=== PATIENT | female | born 1940 | race Caucasian/White ===

== ENCOUNTER → 2016-10-04 | Outpatient (CLI) | payer MEDICARE, OTHER ==
--- NOTE | 2016-10-05 07:32 | US ---
EXAMINATION TYPE: US kidneys/renal and bladder DATE OF EXAM: 10/04/2016 4:17 PM COMPARISON: NONE CLINICAL HISTORY: Renal Cyst N28.1. Renal cysts bilateral EXAM MEASUREMENTS: Right Kidney: 10.3 x 5.5 x 4.9 cm Left Kidney: 10.2 x 4.5 x 4.3 cm Right Kidney: No evidence of hydro, 2 cysts at lower pole 1)= 2.4 x 2.4 x 1.7 cm 2)= 1.6 x 1.4 x 1.2 cm cm Left Kidney: No evidence of hydro, 2 cysts at mid 1)= 5.7 x 4.0 x 6.1 cm, 2)= 1.6 x 1.8 x 1.4 cm Bladder: wnl Bilateral Jets seen: Yes There is no evidence for hydronephrosis at this point in time. No nephrolithiasis is seen. Bilateral simple appearing renal cysts as outlined above. The urinary bladder is anechoic. Bilateral ureteral jets are seen. IMPRESSION: Bilateral simple appearing renal cysts as outlined above.
== END | disposition home or self-care (01) ==
LOC: RADUSWWP 15:57
PROVIDERS: ATTEND Family Medicine
DX: N28.1 Cyst of kidney, acquired (principal)
CPT/HCPCS: 76770

== ENCOUNTER → 2016-12-13 | Outpatient (CLI) | payer MEDICARE, OTHER ==
--- NOTE | 2016-12-15 13:21 | MM ---
Reason for exam: screening (asymptomatic). Last mammogram was performed 1 year ago. History: Patient is postmenopausal. Family history of breast cancer in sister at age 68. Physical Findings: A clinical breast exam by your physician is recommended on an annual basis and results should be correlated with mammographic findings. MG 3D Screening Mammo W/Cad Bilateral CC and MLO view(s) were taken. Prior study comparison: December 11, 2015, bilateral MG 3d screening mammo w/cad. December 09, 2014, bilateral MG screening mammo w CAD. The breast tissue is heterogeneously dense. This may lower the sensitivity of mammography. Asymmetries greater in the left breast. No significant changes when compared with prior studies. ASSESSMENT: Benign, BI-RAD 2 RECOMMENDATION: Routine screening mammogram of both breasts in 1 year.
== END | disposition home or self-care (01) ==
LOC: RADMAMWWP 11:04
PROVIDERS: ATTEND Family Medicine
DX: Z12.31 Encounter for screening mammogram for malignant neoplasm of breast (principal)
CPT/HCPCS: 77063; G0202

== ENCOUNTER → 2017-12-15 | Outpatient (CLI) | payer MEDICARE, OTHER ==
--- NOTE | 2017-12-19 10:03 | MM ---
Reason for exam: screening (asymptomatic). Last mammogram was performed 1 year ago. History: Patient is postmenopausal. Family history of breast cancer in sister at age 68. Physical Findings: A clinical breast exam by your physician is recommended on an annual basis and results should be correlated with mammographic findings. MG 3D Screening Mammo W/Cad Bilateral CC and MLO view(s) were taken. Technologist: Jacque Tarango RT (R)(M) Prior study comparison: December 13, 2016, bilateral MG 3d screening mammo w/cad. December 11, 2015, bilateral MG 3d screening mammo w/cad. There are scattered fibroglandular densities. No significant changes when compared with prior studies. ASSESSMENT: Benign, BI-RAD 2 RECOMMENDATION: Routine screening mammogram of both breasts in 1 year.
== END | disposition home or self-care (01) ==
LOC: RADMAMWWP 10:51
PROVIDERS: ATTEND Family Medicine
DX: Z12.31 Encounter for screening mammogram for malignant neoplasm of breast (principal); Z80.3 Family history of malignant neoplasm of breast
CPT/HCPCS: 77063; 77067

== ENCOUNTER → 2018-04-12 | Outpatient (CLI) | payer MEDICARE, OTHER ==
--- NOTE | 2018-04-12 17:09 | MR ---
EXAMINATION TYPE: MR lumbar spine wo con DATE OF EXAM: 04/12/2018 COMPARISON: Prior lumbar MRI dated 08/24/2016 HISTORY: Low back pain TECHNIQUE: Multiplanar, multisequence images of the lumbar spine were acquired. L1-L2: Small posterior central disc bulge causes only slight anterior mass effect on the thecal sac. No significant central stenosis or foraminal encroachment.. L2-L3: Left posterior paracentral extension of endplate disc complex causes anterolateral mass effect on the thecal sac. Facet arthropathy present causing some posterior lateral mass effect on the theca l sac. No significant foraminal encroachment or central stenosis. L3-L4: Facet arthropathy with hypertrophy of the ligamentum flavum causes some posterior lateral mass effect on the thecal sac. Circumferential extension endplate disc complex encroaches on the foramina bilaterally, no significant central stenosis. L4-L5: Posterior broad-based disc bulge causes some anterior mass effect on the thecal sac. Facet art hropathy with hypertrophy of the ligamentum flavum causes posterior lateral mass effect on the thecal sac, there is encroachment on the foramina right greater than left, circumferential extension of end plate disc complex contributes to foraminal encroachment as well as the facet arthropathy. No signifi cant central stenosis. L5-S1: There is facet arthropathy, minimal posterior disc bulge may contact the anterior thecal sac, proximal S1 nerve roots. No significant central canal stenosis. Lumbar segments are intact. No paraspinal masses are identified. Conus medullaris has a normal appe arance. There is stable alignment, multilevel spondylosis is present with endplate discogenic marrow signal change, loss of disc height signal is greatest at L3-4 also present at L2-3, L4-5. Vacuum phen omenon present at intervertebral levels L2-3, L3-4 and L4-5. Large T2 hyperintense focus associated w ith the left kidney likely related to simple cyst but is incompletely evaluated measuring 5.5 cm, sma ller cortical cysts, also incompletely evaluated are present associated with the kidneys, lesion with in the midpole the right kidney shows intermediate signal and may be related to proteinaceous cyst, f ollow-up recommended. IMPRESSION: Stable degenerative disc disease and facet arthropathy, foraminal encroachment. Indeterminate foci ar e associated with the kidneys, consider dedicated imaging, follow-up recommended.
== END | disposition home or self-care (01) ==
LOC: RADMRIMAIN 13:29
PROVIDERS: ATTEND Physical Medicine & Rehabilitation
DX: M51.16 Intervertebral disc disorders with radiculopathy, lumbar region (principal); M46.96 Unspecified inflammatory spondylopathy, lumbar region
CPT/HCPCS: 72148

== ENCOUNTER → 2018-10-16 | Outpatient (CLI) | payer MEDICARE, OTHER ==
--- NOTE | 2018-10-16 13:37 | MR ---
EXAMINATION TYPE: MR cervical spine wo/w con DATE OF EXAM: 10/16/2018 12:22 PM COMPARISON: 03/24/2016 HISTORY: Cervicalgia / Radiculopathy, cervical CONTRAST: The patient was injected with 7.5 mL intravenous Gadavist gadolinium contrast. Multiplanar MultiSpin echo imaging of the cervical spine was performed. Patient motion limits evalua tion. C2-C3: No evidence for degenerative disc disease. No disc bulge/herniation or protrusion. No Canal stenosis. Foramina are patent bilaterally. C3-C4: No evidence for degenerative disc disease. No disc bulge/herniation or protrusion. No Canal stenosis. Foramina are patent bilaterally. C4-C5: Posterior disc bulge. Mild posterocentral disc protrusion. No definite central stenosis. Right foraminal encroachment. C5-C6: No evidence for degenerative disc disease. No disc bulge/herniation or protrusion. No Canal stenosis. Foramina are patent bilaterally. C6-C7: Postoperative changes of anterior cervical discectomy and fusion. Anterior fixation plate is i n place. C7-T1: No evidence for degenerative disc disease. No disc bulge/herniation or protrusion. No Canal stenosis. Foramina are patent bilaterally. No cervical spine fracture. There is normal alignment. Cervical spinal cord is of normal signal. C raniovertebral junction relationships are within normal limits. No pathologic enhancement. IMPRESSION: 1. Limited study by patient motion. Postoperative changes of ACDF at C6-7. Disc desiccation and disc protrusion small in size at C4-5.
== END | disposition home or self-care (01) ==
LOC: RADMRIMAIN 11:36
PROVIDERS: ATTEND Orthopaedic Surgery Orthopaedic Surgery of the Spine
DX: M50.121 Cervical disc disorder at C4-C5 level with radiculopathy (principal); F17.218 Nicotine dependence, cigarettes, with other nicotine-induced disorders; E66.9 Obesity, unspecified; Z98.1 Arthrodesis status
CPT/HCPCS: 72156; A9585

== ENCOUNTER → 2018-11-27 | Outpatient (CLI) | payer MEDICARE, OTHER ==
--- NOTE | 2018-11-27 15:57 | US ---
EXAMINATION TYPE: US extremity nonvasc mass LT DATE OF EXAM: 11/27/2018 COMPARISON: NONE CLINICAL HISTORY: 78-year-old female R22.42 Localized swelling, mass and lump llext. Lump lateral lef t lower leg near ankle for 1 month. No pain, no discoloration Technique: Targeted ultrasound examination along the lateral aspect of the distal left leg/ankle at t he site of palpable abnormality. FINDINGS: Translation Director notes: Within area of concern, left lateral lower leg near ankle, there is a circumscribe d hypoechoic area = 1.5 x 0.4 x 1.6cm this seems to be located within the subcutaneous tissues overly ing musculature close to the distal fibula. When transducer pressure, there is some mass effect onto the underlying musculature. No associated vascularity. What is suspected to be one of the peroneal te ndons is located nearby just posteriorly. IMPRESSION: Well-defined 1.6 x 1.5 x 0.4 cm hypoechoic nodule located within the subcutaneous adipose layer overl andrade musculature adjacent to the distal fibula. Exact etiology is unclear. A small mesenchymal tumor, granuloma, 4 nodular synovitis are some differential considerations. This area can be followed clini susan. If symptomatic, excision could be considered. If further imaging assessment is desired, small [id number] MRI can be considered.
== END | disposition home or self-care (01) ==
LOC: RADUSWWP 14:07
PROVIDERS: ATTEND Family Medicine
DX: R22.42 Localized swelling, mass and lump, left lower limb (principal); C40.22 Malignant neoplasm of long bones of left lower limb; L92.9 Granulomatous disorder of the skin and subcutaneous tissue, unspecified; M65.9 Synovitis and tenosynovitis, unspecified

== ENCOUNTER → 2018-12-21 | Outpatient (CLI) | payer MEDICARE, OTHER ==
--- NOTE | 2018-12-22 14:49 | MR ---
EXAMINATION TYPE: MR ankle LT wo/w con DATE OF EXAM: 12/21/2018 COMPARISON: Prior targeted ultrasound dated 11/27/2018 HISTORY: Left ankle mass x 1-2 months Technique: Standard multiplanar, multisequence MRI departmental protocol utilizing 7.5 mL intravenous Gadavist g adolinium contrast. FINDINGS: T1 weighted imaging demonstrates small dorsal osteophytes of the talonavicular joint and very small p lantar heel spur as well as extremely small Achilles heel spur. No joint effusion is seen of bone mar row edema. Sinus tarsus is unremarkable. Plantar fascial and Achilles tendon are within normal limits of signal and morphology on both fluid sensitive and T1 weighted sequences. There is an encapsulated elongated 1.6 x 0.3 cm within the subcutaneous tissues deep to the palpable BB marker with mild overlying cutaneous edema. This appears to follow intensity of fat on all sequenc es and does not demonstrate any internal enhancement. Nonspecific edema is seen throughout the remain george of the anterior hindfoot and ankle. This abuts the Proteus brevis and longus without any invasion or muscular edema. Ankle mortise congruity alignment are maintained. Degenerative cystic change of the fibula is present just above the insertion of the posterior talofibular ligament. The deltoid ligament, spring ligamen t, anterior talofibular ligament, and posterior talofibular ligament appear intact and unremarkable. There is a split tear of the peroneus brevis just distal to the ankle joint that is long segment exte nding approximately 2.5 to 3 cm in length. The extensor and flexor tendons are intact and unremarkabl e. Lisfranc ligament is suboptimally visualized given [id number] but does appear to be intact. Bon e marrow signal is within normal limits. IMPRESSION: Lipomatous lesion of the left lateral ankle superficial subcutaneous tissues just deep to the skin rodriguez rface does not exhibit abnormal enhancement or suspicious features, overall features are benign. Asym ptomatic or interval growth excision could be performed.
== END | disposition home or self-care (01) ==
LOC: RADMRIMAIN 11:47
PROVIDERS: ATTEND Orthopaedic Surgery
DX: R22.42 Localized swelling, mass and lump, left lower limb (principal)
CPT/HCPCS: 73723; A9585

== ENCOUNTER → 2019-01-01 | Outpatient (CLI) | payer MEDICARE, OTHER ==
--- NOTE | 2019-01-01 14:40 | US ---
EXAMINATION TYPE: US renals and bladder DATE OF EXAM: 01/01/2019 COMPARISON: NONE CLINICAL HISTORY: N18.3 Chronic Kidney Disease. h/o renal cysts EXAM MEASUREMENTS: Right Kidney: 10.1 x 4.9 x 5.3 cm Left Kidney: 9.5 x 3.5 x 4.5 cm Right Kidney: 2.4 x 2.2 x 2.1cm lateral pole cyst seen Left Kidney: 6.9 x 6.8 x 4.4cm anterior mid pole cyst seen Bladder: wnl Bilateral Jets seen: yes There is no evidence for hydronephrosis at this point in time. No nephrolithiasis is seen. No solid masses are identified. The urinary bladder is anechoic. Bilateral ureteral jets are seen. IMPRESSION: Simple renal cysts noted.
== END | disposition home or self-care (01) ==
LOC: RADUSWWP 12:07
PROVIDERS: ATTEND Internal Medicine
DX: N28.1 Cyst of kidney, acquired (principal); N18.3 Chronic kidney disease, stage 3 (moderate)
CPT/HCPCS: 76770

== ENCOUNTER 2019-04-05 06:34 | Day surgery (SDC) | payer MEDICARE, OTHER ==
[2019-04-03 11:23] VITALS: BMI 32.7
[~2019-04-05 06:34] MED LIST: DEXAMETHASONE SOD PHOSPHATE 10 MG/ML 1 ML VIAL IV ONE; LACTATED RINGERS 1,000 ML IV SCH; LIDOCAINE 1% 20 ML VIAL (10MG/ML) FOR IV START INTRADERMA PRN; ONDANSETRON 4 MG/2 ML VIAL IVP ONE; fentaNYL (PF) 50 MCG/ML 2 ML AMP IV PRN
[2019-04-05 07:08] VITALS: RESP 18; TEMP 98.6
[2019-04-05 07:09] LABS: Glucose,Whole Blood 139 mg/dL (75-99)
[2019-04-05] MEDS ORDERED: KETAMINE 10 MG/ML 20 ML VIAL ONE (07:48)
[2019-04-05] MEDS ORDERED: PROPOFOL 10 MG/ML 20 ML VIAL IV ONE (07:48)
[2019-04-05] MEDS ORDERED: fentaNYL (PF) 50 MCG/ML 2 ML AMP ONE (07:48)
[2019-04-05] MEDS ORDERED: MIDAZOLAM 2 MG/2 ML VIAL ONE (07:48)
[2019-04-05] MEDS ORDERED: BUPIVACAINE (PF) 0.5% 30 ML VIAL SQ ONE ×2 (08:07)
--- NOTE | 2019-04-05 08:39 | P.OP ---
Date of Procedure: 04/05/19 Preoperative Diagnosis: 1. Painful bony exostosis, distal phalanx left fifth toe Postoperative Diagnosis: Same Procedure(s) Performed: Partial distal phalangectomy, left fifth toe Anesthesia: MAC Surgeon: Franco Qureshi Laminating Machine Operator Helper #1: Charisse Blue Estimated Blood Loss (ml): 2 IV fluids (ml): 500 Pathology: none sent Condition: stable Disposition: PACU Indications for Procedure: The patient is a very pleasant 78-year-old female who presented to my office with a painful bump off the distal aspect of her fifth toe. Her x-rays showed a bony exostosis. We discussed nonsurgical versus surgical treatment. The patient was adamant that she had failed a long course of nonsurgical treatment and requested removal of the painful bump. I agreed and had a long discussion with him the potential risks and competitions of surgery including but not limited to risks from anesthesia, superficial infection, damage to local blood vessels or nerves, continued or worsened pain, recurrence, sensitive scar, generalized dissatisfaction with surgery, DVT, PE, other medical problems, and possibly need for amputation of the toe. The patient voiced understanding of these potential risks and also nausea other less common complications are possible. She provided her verbal and written consent to go forward with surgery. Description of Procedure: The patient was identified in preop holding and the correct left foot fifth toe was marked my initials. I reviewed the consent form with the patient also her questions were answered. The patient was then brought back to the operating room by anesthesia. She was given a sedation and preoperative antibiotics. The left leg was prepped and draped in standard sterile fashion. Prior to starting surgery timeout was performed identifying the correct patient operative extremity, and procedure. The patient's leg was then elevated exsanguinated with an Esmarch bandage and the tourniquet was inflated to 250 mmHg. A digital block was performed of the left fifth toe using half percent Marcaine without epinephrine. I began by marking out a mid axial incision over the lateral aspect of the fifth toe. Skin incision was made with a scalpel and dissection was carried down bluntly through subcutaneous tissues. There was a large bony prominence over the distal phalanx which was contoured with a ronguer until there was no longer a prominence. Once the bony exostosis had been debulked the tip of the tonal longer had a painful prominence to palpation. The wound was thoroughly irrigated and gently closed using 3-0 nylon horizontal mattress sutures. The tourniquet was let down. The tip of the toe pinked up. A sterile dressing was applied. The patient was transferred from the OR table and brought to recovery entire procedure well
[2019-04-05 08:57] VITALS: BP 145/71; PULSE 68
== END 2019-04-05 09:26 | disposition home or self-care (01) ==
LOC: OR 06:34
PROVIDERS: ATTEND Orthopaedic Surgery
DX: D16.32 Benign neoplasm of short bones of left lower limb (principal); E11.9 Type 2 diabetes mellitus without complications; I10 Essential (primary) hypertension; E78.5 Hyperlipidemia, unspecified; F41.9 Anxiety disorder, unspecified; G47.9 Sleep disorder, unspecified; M19.072 Primary osteoarthritis, left ankle and foot; N28.9 Disorder of kidney and ureter, unspecified; K21.9 Gastro-esophageal reflux disease without esophagitis; Z72.0 Tobacco use; Z88.7 Allergy status to serum and vaccine; Z79.84 Long term (current) use of oral hypoglycemic drugs; Z79.899 Other long term (current) drug therapy; Z79.891 Long term (current) use of opiate analgesic; Z97.3 Presence of spectacles and contact lenses; Z98.1 Arthrodesis status; Z98.890 Other specified postprocedural states; Z90.49 Acquired absence of other specified parts of digestive tract; Z97.2 Presence of dental prosthetic device (complete) (partial); Z83.3 Family history of diabetes mellitus; Z82.49 Family history of ischemic heart disease and other diseases of the circulatory system
CPT/HCPCS: 28124; 84132; J2250; J1100; J0690; J2405; J3010; J2704

== ENCOUNTER → 2020-01-01 | Outpatient (CLI) | payer MEDICARE, OTHER ==
--- NOTE | 2020-01-01 15:50 | BD ---
EXAMINATION TYPE: Axial Bone Density DATE OF EXAM: 01/01/2020 COMPARISON: NONE CLINICAL HISTORY: 79-year-old female postmenopausal screening Height: 4 FT 11 1/2 IN Weight: 169 FRAX RISK QUESTIONS: Alcohol (3 or more units per day): NO Family History (Parent hip fracture): NO Glucocorticoids (More than 3mos): NO (Ex: prednisone, prednisolone, methylprednisolone, dexamethasone, and hydrocortisone). History of Fracture in Adulthood: NO Secondary Osteoporosis: 1. Type 1 Diabetes: NO 2. Hyperthyroidism: NO 3. Menopause before 45: UNSURE 4. Malnutrition: NO 5. Chronic liver disease: NO Rheumatoid Arthritis: NO Current Tobacco Use: YES RISK FACTORS HISTORY OF: Family History of Osteoporosis: YES Active: SOMEWHAT Postmenopausal woman: STATES IT WAS EARLY UNSURE Poor Health: FAIR MEDICATIONS: Additional Medications: EZETIMIBE, SIMVASTATIN, JANUVIA, GLIPIZIDE, OLMESARTAN, MEDOXOML,LAVAZA, HYDR OCODONE, ACETAMINO,RANITIDINE, ACCU CHECK, OCUVITE, LANCER Additional History: EXAM MEASUREMENTS: Bone mineral densitometry was performed using the Neurodyn System. Bone mineral density as measured about the Lumbar spine is: ----- L1-L4(G/cm2): 1.199 T Score Values are as follows: ----- L2: -1.0 ----- L3: 1.5 ----- L4: 0.0 ----- L1-L4: 0.2 Bone mineral density has: INCREASED 1.8 % since study of: 2016 Bone mineral density about the R hip (g/cm2): 0.822 Bone mineral density about the L hip (g/cm2): 0.871 T Score values are as follows: -----R Neck: -1.6 -----L Neck: -1.2 -----R Total: -0.7 -----L Total: -0.4 Bone mineral density has: DECREASED -7.6 % since study of: 2016 IMPRESSION: Osteopenia (T Score between -2.5 and -1). There is slightly increased risk of fracture and the patient may be considered for treatment. Re-Screen 2-5 years. He NOTE: T-SCORE=SD OF THE YOUNG ADULT MEAN.
--- NOTE | 2020-01-02 08:44 | MM ---
Reason for exam: screening (asymptomatic). Last mammogram was performed 1 year and 1 month ago. History: Patient is postmenopausal. Family history of breast cancer in sister at age 68. Physical Findings: A clinical breast exam by your physician is recommended on an annual basis and results should be correlated with mammographic findings. MG 3D Screening Mammo W/Cad Bilateral CC and MLO view(s) were taken. Prior study comparison: December 12, 2018, bilateral MG 3d screening mammo w/cad. December 15, 2017, bilateral MG 3d screening mammo w/cad. The breast tissue is heterogeneously dense. This may lower the sensitivity of mammography. Finding: There are typically benign dystrophic, round, linear calcifications in both breasts. There is a chronic nodularity in the right breast. There is no discrete abnormality. ASSESSMENT: Benign, BI-RAD 2 RECOMMENDATION: Routine screening mammogram of both breasts in 1 year.
== END | disposition home or self-care (01) ==
LOC: RADMAMWWP 09:12
PROVIDERS: ATTEND Family Medicine
DX: M81.8 Other osteoporosis without current pathological fracture (principal); Z12.31 Encounter for screening mammogram for malignant neoplasm of breast
CPT/HCPCS: 77063; 77067; 77080

== ENCOUNTER 2020-06-22 11:49 | Emergency (ER) | payer MEDICARE, OTHER ==
[2020-06-22 11:56] VITALS: RESP 18; TEMP 98.3
[2020-06-22] MEDS ORDERED: HYDROcodone/APAP 5-325MG 1 EACH TAB PO STA (12:01)
--- NOTE | 2020-06-22 12:08 | ED ---
Extremity Problem HPI - General Chief complaint: Extremity Problem,Nontraumatic Stated complaint: knee pain Time Seen by Provider: 06/22/20 11:53 Source: patient, EMS Mode of arrival: EMS Limitations: physical limitation - History of Present Illness Initial comments: Patient is an 80-year-old female presenting to the emergency department via EMS with complaints of left knee pain. Patient states 2 weeks ago she was having an echo of her heart and laying on her left side and noticed a little bit of left knee pain at that time. She states she's been doing okay since but then today she was standing and went to walk to another room when she felt a pop in her left knee. Patient states she was unable to ambulate after that so she called EMS. She states the pain is mostly in the anterior portion of her left knee. She denies any fever or chills. Patient states she normally takes [place] for pain but has not taken one today. She denies any prior surgeries of her left knee. She denies any falls or trauma. She has no further complaints at this time. - Related Data Home Medications Medication Instructions Recorded Confirmed Ezetimibe/Simvastatin [Vytorin 1 each PO DAILY 02/20/14 04/05/19 10-80 mg Tablet] glipiZIDE [Glucotrol] 10 mg PO AC-BRKFST 02/20/14 04/05/19 sitaGLIPtin [Januvia] 100 mg PO QAM 02/20/14 04/05/19 C,E,Zinc,Copper 11/Gkwwc6w/Lut 1 each PO DAILY 04/03/19 04/05/19 [Ocuvite Adult 50 Plus Softgel] Cholecalciferol [Vitamin D3 (25 2,000 unit PO DAILY 04/03/19 04/05/19 Mcg = 1000 Iu)] HYDROcodone/APAP 7.5-325MG [[place] 1 tab PO TID PRN 04/03/19 04/05/19 7.5-325] Losartan Potassium 50 mg PO QAM 04/03/19 04/05/19 [place]-3 Acid Ethyl Esters [Lovaza] 4 gm PO DAILY 04/03/19 04/05/19 Pioglitazone [Actos] 15 mg PO DAILY 04/03/19 04/05/19 Allergies Allergy/AdvReac Type Severity Reaction Status Date / Time tetanus immune globulin Allergy Swelling Verified 06/22/20 11:55 Review of Systems ROS Statement: Those systems with pertinent positive or pertinent negative responses have been documented in the HPI. ROS Other: All systems not noted in ROS Statement are negative. Past Medical History Past Medical History: Diabetes Mellitus, Eye Disorder, GERD/Reflux, Hyperlipidemia, Hypertension, Osteoarthritis (OA), Renal Disease Additional Past Medical History / Comment(s): Limited mobility right shoulder/arm. "Hx Macular degeneration bilateral eyes, resolved." Heart murmur. "Poor kidney function due to Diabetes." History of Any Multi-Drug Resistant Organisms: None Reported Past Surgical History: Cholecystectomy, Orthopedic Surgery, Tonsillectomy Additional Past Surgical History / Comment(s): Neck fusion, carpel tunnel surgery, left ring finger trigger finger surgery, right shoulder surgery, heel spur surgery. Epidural injections. Past Anesthesia/Blood Transfusion Reactions: No Reported Reaction Past Psychological History: No Psychological Hx Reported Past Alcohol Use History: None Reported Past Drug Use History: None Reported - Past Family History Sister(s) Family Medical History: Cancer Additional Family Medical History / Comment(s): Breast cancer. General Exam - General Exam Comments Initial Comments: GENERAL: Patient is well-developed and well-nourished. Patient is nontoxic and in no acute distress. HEAD: Atraumatic, normocephalic. EYES: Pupils equal round and reactive to light, extraocular movements intact, sclera anicteric, conjunctiva are normal. Eyelids were unremarkable. ENT: TMs normal, nares patent, oropharynx clear without exudates. Moist mucous membranes. NECK: Normal range of motion, supple without lymphadenopathy or JVD. LUNGS: Unlabored respirations. Breath sounds clear to auscultation bilaterally and equal. No wheezes rales or rhonchi. HEART: Regular rate and rhythm without murmurs, rubs or gallops. ABDOMEN: Soft, nontender, normoactive bowel sounds. No guarding, no rebound. No masses appreciated. : Deferred MUSCULOSKELETAL: Patient has pain to palpation of the anterior left knee, medial and lateral aspect as well. She has decreased active flexion secondary to pain. She does have some mild to moderate swelling present. No erythema or signs of infection. Neurovascular intact. No clubbing or cyanosis. NEUROLOGICAL: Patient is alert and oriented x 3. Motor and sensory are also intact. Normal sp eech, normal gait. PSYCH: Normal mood, normal affect. SKIN: Warm, Dry, normal turgor, no rashes or lesions noted. Limitations: physical limitation Course Vital Signs 06/22/20 06/22/20 06/22/20 11:51 12:34 13:03 Temperature 98.3 F 98.3 F Pulse Rate 78 75 75 Respiratory 18 18 18 Rate Blood Pressure 171/62 158/70 158/70 O2 Sat by Pulse 98 98 98 Oximetry Medical Decision Making - Medical Decision Making Patient is an 80-year-old female here for left knee pain. No trauma or falls. She's had no prior surgeries. No obvious signs of infection. X-rays reveal no acute fractures/dislocations. I discussed with patient this could be an irritation of her arthritis or possibly contusion, internal derangement is also possibility. Patient has seen Dr. iRder and zeke in the past. I discussed with her to call them first in the morning to follow-up. I will give her prescription for crutches. She is stable for discharge. She is in agreement this plan of care. Disposition Clinical Impression: Left anterior knee pain Disposition: HOME SELF-CARE Condition: Stable Instructions (If sedation given, give patient instructions): Knee Pain (ED) Additional Instructions: Please return to the Emergency Department if symptoms worsen or any other concerns. Continue with ice, elevation. Use crutches as needed for additional support. Follow up with orthopedics as discussed. Is patient prescribed a controlled substance at d/c from ED?: No Referrals: Sedrick Diego MD [Primary Care Provider] - 1-2 days Collins Rider DO [Doctor of Osteopathic Medicine] - 1-2 days
--- NOTE | 2020-06-22 12:33 | XR ---
EXAMINATION TYPE: XR knee complete LT DATE OF EXAM: 06/22/2020 COMPARISON: NONE HISTORY: Pain TECHNIQUE: Three views are submitted. FINDINGS: Spurring along the patella and vascular calcifications noted. Narrowing of medial compartment of the knee joint. No acute fracture or dislocation. IMPRESSION: 1. No acute fracture.
[2020-06-22 12:35] VITALS: BP 158/70; PULSE 75
== END 2020-06-22 13:04 | disposition home or self-care (01) ==
LOC: EC 11:49
DX: M25.562 Pain in left knee (principal); M79.89 Other specified soft tissue disorders; E11.9 Type 2 diabetes mellitus without complications; K21.9 Gastro-esophageal reflux disease without esophagitis; E78.5 Hyperlipidemia, unspecified; I10 Essential (primary) hypertension; M19.90 Unspecified osteoarthritis, unspecified site; Z79.84 Long term (current) use of oral hypoglycemic drugs; Z79.899 Other long term (current) drug therapy; Z88.7 Allergy status to serum and vaccine; Z98.1 Arthrodesis status; Z90.49 Acquired absence of other specified parts of digestive tract
CPT/HCPCS: 99283

== ENCOUNTER → 2021-01-15 | Outpatient (CLI) | payer MEDICARE, OTHER ==
--- NOTE | 2021-01-19 14:30 | MM ---
Reason for exam: screening (asymptomatic). Last mammogram was performed 1 year ago. History: Patient is postmenopausal. Family history of breast cancer in sister at age 68. Physical Findings: A clinical breast exam by your physician is recommended on an annual basis and results should be correlated with mammographic findings. MG 3D Screening Mammo W/Cad Bilateral CC and MLO view(s) were taken. Prior study comparison: January 01, 2020, bilateral MG 3d screening mammo w/cad. December 12, 2018, bilateral MG 3d screening mammo w/cad. The breast tissue is heterogeneously dense. This may lower the sensitivity of mammography. Asymmetry greater in the left breast. No significant changes when compared with prior studies. ASSESSMENT: Benign, BI-RAD 2 RECOMMENDATION: Routine screening mammogram of both breasts in 1 year.
== END | disposition home or self-care (01) ==
LOC: RADMAMWWP 10:55
PROVIDERS: ATTEND Family Medicine
DX: Z12.31 Encounter for screening mammogram for malignant neoplasm of breast (principal); Z78.0 Asymptomatic menopausal state; Z80.3 Family history of malignant neoplasm of breast
CPT/HCPCS: 77063; 77067

== ENCOUNTER → 2024-03-01 | Outpatient (CLI) | payer MEDICARE, OTHER ==
--- NOTE | 2024-03-06 08:21 | MM ---
Reason for Exam: Screening (asymptomatic). Last mammogram was performed 1 year(s) and 1 month(s) ago. Patient History: Menarche at age 11. First Full-Term at age 18. Postmenopausal. Sister had breast cancer, age 68. Risk Values: Kathleen 5 year model risk: 3.0%. NCI Lifetime model risk: 3.8%. Prior Study Comparison: 12/12/2018 Bilateral Screening Mammogram, [facility]. 01/01/2020 Bilateral Screening Mammogram, [facility]. 01/15/2021 Bilateral Screening Mammogram, [facility]. 01/24/2023 Bilateral Screening Mammogram, [facility]. Tissue Density: The breasts are heterogeneously dense, which may obscure small masses. Findings: Analyzed By CAD. Benign-appearing calcifications. No suspicious grouped calcifications. Area of asymmetric density in the outer margin left breast. Recommend spot compression view. Overall Assessment: Incomplete: need additional imaging evaluation, BI-RAD 0 Management: Diagnostic Mammogram of the left breast. . Patient should continue monthly self-breast exams. A clinical breast exam by your physician is recommended on an annual basis. This exam should not preclude additional follow-up of suspicious palpable abnormalities. Note on Kathleen scores and lifetime risk: 1. A Kathleen score greater than 3% is considered moderate risk. If this is the case, consider specialist referral to assess eligibility for a risk reducing agent. 2. If overall lifetime risk for the development of breast cancer is 20% or higher, the patient may qualify for future screening with alternating mammogram and breast MRI. [facility], , 03/06/2024 8:18 AM. Electronically signed and approved by: Jos Vilchis M.D. Radiologis
--- NOTE | 2024-03-12 21:28 | BD ---
EXAMINATION TYPE: Axial Bone Density DATE OF EXAM: 03/01/2024 CLINICAL HISTORY: 83 years old Female. ICD-10 CODE: M89.9 DISORDER OF BONE Height: 60 Weight: 159.7 FRAX RISK QUESTIONS: Alcohol (3 or more units per day): no Family History (Parent hip fracture): no Glucocorticoids (More than 3mos): no (Ex: prednisone, prednisolone, methylprednisolone, dexamethasone, and hydrocortisone). History of Fracture in Adulthood: no Secondary Osteoporosis: 1. Type 1 Diabetes: no 2. Hyperthyroidism: no 3. Menopause before 45: no 4. Malnutrition: no 5. Chronic liver disease: no Rheumatoid Arthritis: no Current Tobacco Use: yes RISK FACTORS HISTORY OF: Hip Fracture (Right/Left): no Spine Fracture: no History of Wrist Fracture: no Surgery to Spine/Hip(right/left)/Wrist (right/left): no MEDICATIONS: Thyroid Medications: no Osteoporosis Medications: no EXAM MEASUREMENTS: Bone mineral densitometry was performed using the [employer] System. Bone mineral density as measured about the Lumbar spine is: ----- L1-L4(G/cm2): 1.213 T Score Values are as follows: ----- L1: 0.8 ----- L2: -0.7 ----- L3: 0.8 ----- L4: 0.1 ----- L1-L4: 0.3 Z Score Values are as follows: ----- L1: 2.3 ----- L2: 0.8 ----- L3: 2.3 ----- L4: 1.6 ----- L1-L4: 1.8 Bone mineral density has: INCREASED 1.2 % since study of: 01/01/2020 Bone mineral density about the R hip (g/cm2): 0.829 Bone mineral density about the L hip (g/cm2): 0.898 T Score values are as follows: -----R Neck: -2.0 -----L Neck: -1.7 -----R Total: -1.4 -----L Total: -0.9 Z Score values are as follows: -----R Neck: 0.1 -----L Neck: 0.4 -----R Total: 0.5 -----L Total: 1.1 Bone mineral density has: decreased -7.7 % since study of: 01/01/2020 FRAX%s: The graph provided illustrates a 15.9 % chance for a major osteoporotic fx and a 7.1% chance for the hips probability for fx in 10 years time. IMPRESSION: Osteopenia (T Score between -2.5 and -1). There is slightly increased risk of fracture and the patient may be considered for treatment. Re-Screen 2-5 years. NOTE: T-SCORE=SD OF THE YOUNG ADULT MEAN. [facility], , 03/12/2024 9:26 PM
== END | disposition home or self-care (01) ==
LOC: RADBDWWP 09:58
PROVIDERS: ATTEND Family Medicine
DX: Z12.31 Encounter for screening mammogram for malignant neoplasm of breast (principal); Z78.0 Asymptomatic menopausal state; Z80.3 Family history of malignant neoplasm of breast; R92.333 Mammographic heterogeneous density, bilateral breasts; M81.8 Other osteoporosis without current pathological fracture
CPT/HCPCS: 77063; 77067; 77080

== ENCOUNTER → 2024-03-07 | Outpatient (CLI) | payer MEDICARE, OTHER ==
--- NOTE | 2024-03-07 11:16 | MM ---
Reason for Exam: Additional evaluation requested from abnormal screening. Last screening mammogram was performed less than 1 month ago. Patient History: Menarche at age 11. First Full-Term at age 18. Postmenopausal. Sister had breast cancer, age 68. Risk Values: Kathleen 5 year model risk: 3.0%. NCI Lifetime model risk: 3.8%. Prior Study Comparison: 01/15/2021 Bilateral Screening Mammogram, [facility]. 01/24/2023 Bilateral Screening Mammogram, [facility]. 03/01/2024 Bilateral MG 3D screening mammo w/cad, [facility]. Tissue Density: Left: The breasts are heterogeneously dense, which may obscure small masses. Findings: Analyzed By CAD. Under compression on the craniocaudal view appears to be persistence of an oval density with a transverse dimension of 0.6 cm located 4 cm from the nipple approximately 3:00 anterior position. Additional workup with ultrasound is recommended. Overall Assessment: Incomplete: need additional imaging evaluation, BI-RAD 0 Management: Diagnostic Breast Ultrasound of the left breast. A negative mammogram report should not preclude additional follow up of suspicious palpable abnormalities. Patient should continue monthly self breast exam. A clinical breast exam by your physician is recommended on an annual basis and results should be correlated with mammographic findings. Note on Kathleen scores and lifetime risk: 1. A Kathleen score greater than 3% is considered moderate risk. If this is the case, consider specialist referral to assess eligibility for a risk reducing agent. 2. If overall lifetime risk for the development of breast cancer is 20% or higher, the patient may qualify for future screening with alternating mammogram and breast MRI. [facility], , 03/07/2024 11:13 AM. Electronically signed and approved by: Julio Dc D.O. Radiologis
--- NOTE | 2024-03-07 13:14 | USB ---
Reason for Exam: Additional evaluation requested from abnormal screening. Patient History: Menarche at age 11. First Full-Term at age 18. Postmenopausal. Sister had breast cancer, age 68. Risk Values: Kathleen 5 year model risk: 3.0%. NCI Lifetime model risk: 3.8%. Technique: Method: Targeted. Prior Study Comparison: 01/15/2021 Bilateral Screening Mammogram, [facility]. 01/24/2023 Bilateral Screening Mammogram, [facility]. 03/01/2024 Bilateral MG 3D screening mammo w/cad, [facility]. Findings: The lateral section of the breast of the left breast, the axilla of the left breast and the retroareolar of the left breast were scanned. There is a few small simple appearing cysts in the left breast including 3:00 position measuring 0.4 x 0.4 x 0.4 cm 6 cm the nipple. This may correlate with the mammographic finding. Short-term follow-up mammography is recommended to confirm stability. Couple of other additional hypoechoic areas too small to classify are evident.. Overall Assessment: Benign, BI-RAD 2 Management: Diagnostic Mammogram of the left breast in 6 months. A clinical breast exam by your physician is recommended on an annual basis and results should be correlated with mammographic findings. This exam should not preclude additional follow-up of suspicious palpable abnormalities. Results were given to the patient verbally at the time of exam. [facility], , 03/07/2024 11:47 AM. Electronically signed and approved by: Julio Dc D.O. Radiologis
== END | disposition home or self-care (01) ==
LOC: RADMAMWWP 10:42
PROVIDERS: ATTEND Family Medicine
DX: R92.8 Other abnormal and inconclusive findings on diagnostic imaging of breast
CPT/HCPCS: 77061; 77065

== ENCOUNTER 2024-08-28 02:59 | Inpatient (IN) | payer MEDICARE, OTHER ==
[2024-08-28] MEDS: methylPREDNISolone SOD SUCCI 125 MG/2 ML VIAL IV STA (03:33)
[2024-08-28] MEDS: ALBUTEROL NEBULIZED 2.5 MG/3 ML INHALATION STA (03:37)
[2024-08-28] MEDS: IPRATROPIUM 0.5 MG/2.5 ML NEBU INHALATION STA (03:37)
[2024-08-28] MEDS: ONDANSETRON 4 MG/2 ML VIAL IVP STA (03:37)
[2024-08-28] MEDS: ACETAMINOPHEN IV (For NPO) 1,000 MG in EMPTY BAG 1 BAG IVPB STA (03:40)
--- NOTE | 2024-08-28 03:44 | ED ---
General Adult HPI - General Chief complaint: Shortness of Breath Stated complaint: SOB Time Seen by Provider: 08/28/24 03:00 Source: patient, EMS Mode of arrival: EMS Limitations: no limitations - History of Present Illness Initial comments: Patient is 84-year-old female past medical history of hypertension, current smoker presenting today for shortness of breath. Started in the afternoon yesterday and is gradually worsen throughout the day. Endorses a cough nonproductive of hemoptysis or sputum. She denies chest pain. History is limited due to the patient's tachypnea and shortness of breath. - Related Data Home Medications Medication Instructions Recorded Confirmed Ezetimibe/Simvastatin [Vytorin 1 tab PO DAILY 02/20/14 08/28/24 10-80 mg Tablet] sitaGLIPtin [Januvia] 100 mg PO DAILY 02/20/14 08/28/24 HYDROcodone/APAP 7.5-325MG [Carney 1 tab PO TID PRN 04/03/19 08/28/24 7.5-325] Cetirizine HCl [Zyrtec] 10 mg PO DAILY 08/28/24 08/28/24 Cholecalciferol [Vitamin D3 (25 50 mcg PO DAILY 08/28/24 08/28/24 Mcg = 1000 Iu)] Olmesartan Medoxomil [Benicar] 30 mg PO DAILY 08/28/24 08/28/24 Pioglitazone [Actos] 30 mg PO DAILY 08/28/24 08/28/24 Vit C/E/Zn/Coppr/Lutein/Zeaxan 1 cap PO BID 08/28/24 08/28/24 [Preservision Areds 2 Softgel] amLODIPine [Norvasc] 2.5 mg PO BID 08/28/24 08/28/24 glipiZIDE XL [Glucotrol Xl] 10 mg PO DAILY 08/28/24 08/28/24 Allergies Allergy/AdvReac Type Severity Reaction Status Date / Time tetanus immune globulin Allergy Swelling Verified 08/28/24 08:29 cefdinir [From Omnicef] AdvReac Nausea Verified 08/28/24 08:29 codeine AdvReac Nausea Verified 08/28/24 08:29 metformin AdvReac STOMACH Verified 08/28/24 08:29 ISSUES Review of Systems ROS Statement: Those systems with pertinent positive or pertinent negative responses have been documented in the HPI. ROS Other: All systems not noted in ROS Statement are negative. Limitations: ROS unobtainable due to patients medical condition Past Medical History Past Medical History: Diabetes Mellitus, Eye Disorder, GERD/Reflux, Hyperlipidemia, Hypertension, Osteoarthritis (OA), Renal Disease Additional Past Medical History / Comment(s): Limited mobility right shoulder/arm. "Hx Macular degeneration bilateral eyes, resolved." Heart murmur. "Poor kidney function due to Diabetes." History of Any Multi-Drug Resistant Organisms: None Reported Past Surgical History: Cholecystectomy, Orthopedic Surgery, Tonsillectomy Additional Past Surgical History / Comment(s): Neck fusion, carpel tunnel surgery, left ring finger trigger finger surgery, right shoulder surgery, heel spur surgery. Epidural injections. Past Anesthesia/Blood Transfusion Reactions: No Reported Reaction Past Psychological History: No Psychological Hx Reported Past Alcohol Use History: None Reported Past Drug Use History: None Reported - Past Family History Sister(s) Family Medical History: Cancer Additional Family Medical History / Comment(s): Breast cancer. General Exam - General Exam Comments Initial Comments: PE: CONSTITUTIONAL: Moderate distress, tachypneic, ill appearing, nontoxic SKIN: Warm, dry, no jaundice, hives or petechiae EYES: Pupils are equally round, extraocular movements intact without nystagmus, clear conjunctiva, non-icteric sclera HENT: Normocephalic, atraumatic, moist mucus membranes, oropharynx clear without exudates NECK: , Full range of motion, normal appearance PULMONARY: Wheezes in bilateral lower lung sigala, decreased excursion, no rales, accessory mucsle use or stridor CARDIOVASCULAR: Regular rate, rhythm, normal S1 and S2. No appreciated murmurs, rubs or gallops. Strong radial pulses with intact distal perfusion. No lower extremity edema GASTROINTESTINAL: Soft, active bowel sounds throughout, non-tender, non- distended, no palpable masses, no rebound or guarding. No hepatosplenomegaly GENITOURINARY: MUSCULOSKELETAL: Extremities have no gross deformity, no edema, redness, or swelling. No calf swelling NEUROLOGIC:_a/o x 3, GCS 15, normal mentation and speech. Moves all extremities x 4 without motor or sensory deficit PSYCHIATRIC:_normal mood and affect, thought process is clear and linear Limitations: no limitations Course Vital Signs 08/28/24 08/28/2425 03:05 03:38 03:56 Temperature 99.9 F H Pulse Rate 94 85 98 Respiratory 22 Rate Blood Pressure 206/78 O2 Sat by Pulse 97 Oximetry 08/28/24 08/28/24 08/28/24 03:57 04:00 04:17 Temperature Pulse Rate 98 93 100 Respiratory 22 Rate Blood Pressure 167/53 O2 Sat by Pulse 100 Oximetry 08/28/24 08/28/24 08/28/24 04:30 04:48 05:25 Temperature 99.5 F Pulse Rate 95 92 Respiratory 22 22 Rate Blood Pressure 151/54 O2 Sat by Pulse 99 95 Oximetry 08/28/24 08/28/24 08/28/24 05:33 05:53 06:00 Temperature Pulse Rate 93 97 88 Respiratory 22 24 Rate Blood Pressure 141/51 136/63 O2 Sat by Pulse 96 94 L Oximetry 08/28/24 08/28/24 08/28/24 07:19 07:57 07:58 Temperature 99.2 F Pulse Rate 85 84 Respiratory 16 22 Rate Blood Pressure 139/50 O2 Sat by Pulse 95 94 L Oximetry 08/28/24 08/28/24 08/28/24 08:03 08:05 08:11 Temperature Pulse Rate 88 90 94 Respiratory 22 18 18 Rate Blood Pressure O2 Sat by Pulse Oximetry 08/28/24 08/28/24 08/28/24 08:25 09:57 09:58 Temperature Pulse Rate 90 90 Respiratory 18 20 24 Rate Blood Pressure 129/45 119/56 O2 Sat by Pulse 94 L Oximetry 08/28/24 08/28/24 08/28/24 11:26 11:31 12:01 Temperature Pulse Rate 90 91 92 Respiratory 18 18 20 Rate Blood Pressure 140/110 O2 Sat by Pulse 93 L Oximetry 08/28/24 08/28/24 08/28/24 12:05 15:27 15:38 Temperature Pulse Rate 90 90 Respiratory 18 Rate Blood Pressure O2 Sat by Pulse 95 Oximetry 08/28/24 08/28/24 17:08 18:00 Temperature Pulse Rate 101 H 98 Respiratory 20 25 H Rate Blood Pressure 194/83 179/63 O2 Sat by Pulse 92 L 94 L Oximetry - Reevaluation(s) Reevaluation #1: On reassessment patient is still mildly tachypneic though much improved, endorses improvement of symptoms, breath sounds are much improved as well, apices are clear, very scant wheezes in the bases 08/28/24 04:35 EKG Findings - EKG Comments: EKG Findings:: Sinus rhythm, rate 93 bpm IA interval 157 ms QT/QTc 30/30 ms, left axis deviation, no ST elevations or depressions, artifact present throughout, borderline EKG Medical Decision Making - Medical Decision Making Was pt. sent in by a medical professional or institution (, PA, [employer]ER, urgent care, hospital, or residential...) When possible be specific @ -No Did you speak to anyone other than the patient for history (EMS, parent, family, police, friend...)? What history was obtained from this source @ -No Did you review nursing and triage notes (agree or disagree)? Why? @ -I reviewed nursing and triage notes Were old charts reviewed (outside hosp., previous admission, EMS record, old EKG, old radiological studies, urgent care reports/EKG's, residential records)? Report findings @ -Medical records reviewed Differential Diagnosis (chest pain, altered mental status, abdominal pain women, abdominal pain men, vaginal bleeding, weakness, fever, dyspnea, syncope, headache, dizziness, GI bleed, back pain, seizure, CVA, palpatations, mental health, musculoskeletal)? Differential Dyspnea: Coronary syndrome, arrhythmia, tamponade, asthma, COPD, pulmonary embolism, pneumonia, pneumothorax, pulmonary effusion, anaphylaxis, diabetic ketoacidosis, flailed chest, pulmonary contusion, diaphragmatic rupture, anemia, neuromuscular, this is not meant to be an all-inclusive list. EKG interpreted by me (3pts min.). @ -As above X-rays interpreted by me (1pt min.). @ -I personally viewed chest x-ray, appears to show cardiomegaly, hazy opacities in bilateral lower lung sigala, no obvious consolidations or pneumothorax I agree with radiologist interpretation CT interpreted by me (1pt min.). @ -None done U/S interpreted by me (1pt. min.). @ -None done What testing was considered but not performed or refused? (CT, X-rays, U/S, labs)? Why? @ -None What meds were considered but not given or refused? Why? @Sublingual nitroglycerin was considered out of concern for hypertensive emergency and flash pulmonary edema in the setting of dyspnea with hypertension however patient's exam and history more consistent with COPD exacerbation secondary to viral or bacterial pneumonia and symptoms ultimately improved after nebulizer treatments blood pressure improved spontaneously Did you discuss the management of the patient with other professionals (professionals i.e. , PA, [employer]BLER, lab, RT, psych nurse, child protective services social worker, system support developer, teacher, aoc plans intelligence officer, caseworker)? Give summary @ -No Was smoking cessation discussed for >3mins.? @ -No Was critical care preformed (if so, how long)? @Yes 35 minutes Were there social determinants of health that impacted care today? How? (Homelessness, low income, unemployed, alcoholism, drug addiction, transportation, low edu. Level, literacy, decrease access to med. care, [facility], re hab)? @ -No Was there de-escalation of care discussed even if they declined (Discuss DNR or withdrawal of care, Hospice)? @ -No What co-morbidities impacted this encounter? (DM, HTN, Smoking, COPD, CAD, Cancer, CVA, ARF, Chemo, Hep., AIDS, mental health diagnosis, sleep apnea, morbid obesity)? @ -Smoking, hypertension Was patient admitted / discharged? Hospital course, mention meds given and rout e, prescriptions, significant lab abnormalities, going to OR and other pertinent info. @Admission-is an 84-year-old female with a past medical history of hypertension, current smoker, denies denies diagnosed history of COPD presenting today for 1 day of shortness of breath and nonproductive cough. History is limited as patient is significantly tachypneic on exam.On arrival temp 99.9 degrees oral, heart rate 94 respiratory rate 22 blood pressure 206/78 pulse ox 97% on 2 L. During the conversation with patient supplemental O2 was turned off, pulse ox did not go below 92% however patient was significantly tachypneic. She had bilateral wheezes in the lower lung and midlung sigala. No rales, rhonchi or stridor. No accessory muscle use. No lower extremity edema. Differential diagnose remains broad, of top consideration was COPD exacerbation versus hypertensive emergency with flash pulm edema. Patient took her antihypertensives as prescribed, cough and shortness of breath has been gradual over the course of the last day and she is borderline febrile so I suspect symptoms more likely secondary to COPD exacerbation secondary to viral versus bacterial pneumonia. ` [id number] nebulizer treatments ordered, patient placed on high flow oxygen, BiPAP was considered however she had an episode of clear emesis, making BiPAP inappropriate at this point, steroids chest x-ray comprehensive labs ordered. Patient did meet SIRS criteria so blood culture, lactic Rocephin and azithromycin ordered as well. On reassessment status post continuous nebulizer treatment patient appears much more comfortable. Mildly tachypneic however breath sounds are much improved. Chest x-ray was read as possible bilateral lower lobe pneumonia.D-dimer 0.38, troponin undetectable, BNP 2107 panel negative white blood count 13.4, GFR 32, creatinine 1.49, no prior GFR for comparison last creatinine was drawn in 2016 no recent for comparison. Repeat DuoNeb ordered, due to patient's significant symptoms, though appears much improved, will admit for COPD exacerbation. Discussed with patient plan for admission. Patient agreeable plan of care. Patient was admitted to [facility], [place] in stable condition Undiagnosed new problem with uncertain prognosis? @ -No Drug Therapy requiring intensive monitoring for toxicity (Heparin, Nitro, Insulin, Cardizem)? @ -No Were any procedures done? @ -No Diagnosis/symptom? @ -COPD exacerbation, bilateral pneumonia community-acquired Acute, or Chronic, or Acute on Chronic? Acute Uncomplicated (without systemic symptoms) or Complicated (systemic symptoms)? Complicated Side effects of treatment? @ -No Exacerbation, Progression, or Severe Exacerbation? @Exacerbation Poses a threat to life or bodily function? How? (Chest pain, [place], [place], pneumonia, PE, COPD, DKA, ARF, appy, cholecystitis, CVA, Diverticulitis, Homicidal, Suicidal, threat to staff... and all critical care pts) @ -Yes, if left untreated can progress to fulminant respiratory failure and respiratory arrest - Lab Data Result diagrams: 08/28/24 03:24 08/28/24 03:24 Lab Results 08/28/24 08/28/24 08/28/24 Range/Units 03:24 03:24 03:24 WBC 13.4 H (3.8-10.6) k/uL RBC 3.28 L (3.80-5.40) m/uL Hgb 10.2 L (11.4-16.0) gm/dL Hct 32.9 L (34.0-46.0) % MCV 100.3 H (80.0-100.0) fL MCH 31.1 (25.0-35.0) pg MCHC 31.1 (31.0-37.0) g/dL RDW 13.9 (11.5-15.5) % Plt Count 192 (150-450) k/uL MPV 9.0 Neutrophils % 93 % Lymphocytes % 3 % Monocytes % 3 % Eosinophils % 0 % Basophils % 0 % Neutrophils # 12.4 H (1.3-7.7) k/uL Lymphocytes # 0.3 L (1.0-4.8) k/uL Monocytes # 0.5 (0-1.0) k/uL Eosinophils # 0.0 (0-0.7) k/uL Basophils # 0.0 (0-0.2) k/uL PT 11.0 (10.0-12.5) sec INR 1.0 (<1.2) APTT 23.6 (22.0-30.0) sec D-Dimer 0.38 (<0.60) mg/L FEU Sodium 132 L (137-145) mmol/L Potassium 4.6 (3.5-5.1) mmol/L Chloride 104 (98-107) mmol/L Carbon Dioxide 19 L (22-30) mmol/L Anion Gap 9 mmol/L BUN 29 H (7-17) mg/dL Creatinine 1.49 H (0.52-1.04) mg/dL Est GFR (CKD-EPI)AfAm 37 (>60 ml/min/1.73 sqM) Est GFR (CKD-EPI)NonAf 32 (>60 ml/min/1.73 sqM) Glucose 276 H (74-99) mg/dL Estimated Ave Glu mg/dL mg/dL Hemoglobin A1c (<=6.0) % Plasma Lactic Acid Bob (0.7-2.0) mmol/L Calcium 8.8 (8.4-10.2) mg/dL Magnesium 1.9 (1.6-2.3) mg/dL Total Bilirubin 0.3 (0.2-1.3) mg/dL AST 42 H (14-36) U/L ALT 49 H (4-34) U/L Alkaline Phosphatase 82 (38-126) U/L Troponin I (0.000-0.034) ng/mL NT-Pro-B Natriuret Pep 2150 pg/mL Total Protein 6.1 L (6.3-8.2) g/dL Albumin 3.8 (3.5-5.0) g/dL Procalcitonin (0.02-0.50) ng/mL Influenza Type A (PCR) (Not Detectd) Influenza Type B (PCR) (Not Detectd) RSV (PCR) (Not Detectd) SARS-CoV-2 (PCR) (Not Detectd) 08/28/24 08/28/24 08/28/24 Range/Units 03:24 03:24 03:24 WBC (3.8-10.6) k/uL RBC (3.80-5.40) m/uL Hgb (11.4-16.0) gm/dL Hct (34.0-46.0) % MCV (80.0-100.0) fL MCH (25.0-35.0) pg MCHC (31.0-37.0) g/dL RDW (11.5-15.5) % Plt Count (150-450) k/uL MPV Neutrophils % % Lymphocytes % % Monocytes % % Eosinophils % % Basophils % % Neutrophils # (1.3-7.7) k/uL Lymphocytes # (1.0-4.8) k/uL Monocytes # (0-1.0) k/uL Eosinophils # (0-0.7) k/uL Basophils # (0-0.2) k/uL PT (10.0-12.5) sec INR (<1.2) APTT (22.0-30.0) sec D-Dimer (<0.60) mg/L FEU Sodium (137-145) mmol/L Potassium (3.5-5.1) mmol/L Chloride (98-107) mmol/L Carbon Dioxide (22-30) mmol/L Anion Gap mmol/L BUN (7-17) mg/dL Creatinine (0.52-1.04) mg/dL Est GFR (CKD-EPI)AfAm (>60 ml/min/1.73 sqM) Est GFR (CKD-EPI)NonAf (>60 ml/min/1.73 sqM) Glucose (74-99) mg/dL Estimated Ave Glu mg/dL mg/dL Hemoglobin A1c (<=6.0) % Plasma Lactic Acid Bob 1.0 (0.7-2.0) mmol/L Calcium (8.4-10.2) mg/dL Magnesium (1.6-2.3) mg/dL Total Bilirubin (0.2-1.3) mg/dL AST (14-36) U/L ALT (4-34) U/L Alkaline Phosphatase (38-126) U/L Troponin I <0.012 (0.000-0.034) ng/mL NT-Pro-B Natriuret Pep pg/mL Total Protein (6.3-8.2) g/dL Albumin (3.5-5.0) g/dL Procalcitonin 0.13 (0.02-0.50) ng/mL Influenza Type A (PCR) (Not Detectd) Influenza Type B (PCR) (Not Detectd) RSV (PCR) (Not Detectd) SARS-CoV-2 (PCR) (Not Detectd) 08/28/24 08/28/24 Range/Units 03:24 03:27 WBC (3.8-10.6) k/uL RBC (3.80-5.40) m/uL Hgb (11.4-16.0) gm/dL Hct (34.0-46.0) % MCV (80.0-100.0) fL MCH (25.0-35.0) pg MCHC (31.0-37.0) g/dL RDW (11.5-15.5) % Plt Count (150-450) k/uL MPV Neutrophils % % Lymphocytes % % Monocytes % % Eosinophils % % Basophils % % Neutrophils # (1.3-7.7) k/uL Lymphocytes # (1.0-4.8) k/uL Monocytes # (0-1.0) k/uL Eosinophils # (0-0.7) k/uL Basophils # (0-0.2) k/uL PT (10.0-12.5) sec INR (<1.2) APTT (22.0-30.0) sec D-Dimer (<0.60) mg/L FEU Sodium (137-145) mmol/L Potassium (3.5-5.1) mmol/L Chloride (98-107) mmol/L Carbon Dioxide (22-30) mmol/L Anion Gap mmol/L BUN (7-17) mg/dL Creatinine (0.52-1.04) mg/dL Est GFR (CKD-EPI)AfAm (>60 ml/min/1.73 sqM) Est GFR (CKD-EPI)NonAf (>60 ml/min/1.73 sqM) Glucose (74-99) mg/dL Estimated Ave Glu mg/dL 140 mg/dL Hemoglobin A1c 6.5 H (<=6.0) % Plasma Lactic Acid Bob (0.7-2.0) mmol/L Calcium (8.4-10.2) mg/dL Magnesium (1.6-2.3) mg/dL Total Bilirubin (0.2-1.3) mg/dL AST (14-36) U/L ALT (4-34) U/L Alkaline Phosphatase (38-126) U/L Troponin I (0.000-0.034) ng/mL NT-Pro-B Natriuret Pep pg/mL Total Protein (6.3-8.2) g/dL Albumin (3.5-5.0) g/dL Procalcitonin (0.02-0.50) ng/mL Influenza Type A (PCR) Not Detected (Not Detectd) Influenza Type B (PCR) Not Detected (Not Detectd) RSV (PCR) Not Detected (Not Detectd) SARS-CoV-2 (PCR) Not Detected (Not Detectd) Disposition Clinical Impression: COPD exacerbation Disposition: ADMITTED IP TO THIS HOSP Condition: Stable
[2024-08-28 04:02] LABS: Basophils % (A) 0 %; Eosinophils % (A) 0 %; HCT 32.9 % (34.0-46.0); HGB 10.2 gm/dL (11.4-16.0); Lymphocytes # (A) 0.3 k/uL (1.0-4.8); Lymphocytes % (A) 3 %; MCH 31.1 pg (25.0-35.0); MCHC 31.1 g/dL (31.0-37.0); MCV 100.3 fL (80.0-100.0); Monocytes # (A) 0.5 k/uL (0-1.0); Monocytes % (A) 3 %; Neutrophils # (A) 12.4 k/uL (1.3-7.7); Neutrophils % (A) 93 %; Platelet Count 192 k/uL (150-450); RBC 3.28 m/uL (3.80-5.40); RDW 13.9 % (11.5-15.5); WBC 13.4 k/uL (3.8-10.6)
[2024-08-28 04:06] LABS: ALT 49 U/L (4-34); AST 42 U/L (14-36); African American GFR (CKD) 37 (>60 ml/min/1.73 sqM); Albumin 3.8 g/dL (3.5-5.0); Alkaline Phosphatase 82 U/L (38-126); Anion Gap 9 mmol/L; Blood Urea Nitrogen 29 mg/dL (7-17); Calcium 8.8 mg/dL (8.4-10.2); Carbon Dioxide 19 mmol/L (22-30); Chloride 104 mmol/L (98-107); Glucose 276 mg/dL (74-99); Magnesium 1.9 mg/dL (1.6-2.3); Non-African American GFR(CKD) 32 (>60 ml/min/1.73 sqM); Potassium 4.6 mmol/L (3.5-5.1); Sodium 132 mmol/L (137-145); Total Bilirubin 0.3 mg/dL (0.2-1.3); Total Protein 6.1 g/dL (6.3-8.2)
[2024-08-28] MEDS: AZITHROMYCIN 500 MG in SODIUM CHLORIDE 0.9% 250 ML IVPB STA (04:06)
[2024-08-28 04:14] LABS: NT-Pro-B-Type Natriuretic Pept 2150 pg/mL
[2024-08-28 04:27] LABS: Influenza A Not Detected (Not Detectd); Influenza B Not Detected (Not Detectd); RSV Not Detected (Not Detectd)
--- NOTE | 2024-08-28 04:30 | XR ---
EXAM: XR Chest, 1 View CLINICAL HISTORY: ITS.REASON XR Reason: tachypnea, fever, hx smoking TECHNIQUE: Frontal view of the chest. COMPARISON: No relevant prior studies available. FINDINGS: Lungs: Patchy airspace disease is seen within the bilateral lower lobes. Chronic lung markings are seen bilaterally. Pleural space: Unremarkable. No pneumothorax. Heart: Mild enlargement of the cardiac silhouette. Mediastinum: Unremarkable. Normal mediastinal contour. Bones/joints: Degenerative changes are seen in the spine and shoulders. Partial characterization of cervical spine fusion hardware. No acute fracture. Vasculature: Calcifications overlie the aorta. IMPRESSION: Chronic lung markings versus bilateral lower lobe pneumonia.
[2024-08-28 05:29] LABS: Partial Thromboplastin Time 23.6 sec (22.0-30.0)
[2024-08-28] MEDS: HYDROcodone/APAP 5-325MG 1 EACH TAB PO STA (05:46)
[2024-08-28] MEDS: IPRATROPIUM-ALBUTEROL 3 ML NEB INHALATION STA (05:53)
[2024-08-28] MEDS ORDERED: NALOXONE 0.4 MG/ML 1 ML VIAL IVP PRN (06:33)
[2024-08-28] MEDS ORDERED: IPRATROPIUM-ALBUTEROL 3 ML NEB INHALATION PRN (06:38)
--- NOTE | 2024-08-28 07:34 | P.CNPUL ---
History of Present Illness Consult date: 08/28/24 Requesting physician: Darlene Bell Reason for consult: pneumonia Chief complaint: difficulty in breathing History of present illness: Patient is a 84-year-old female with past medical history significant for hypertension, hyperlipidemia, diabetes mellitus, chronic kidney disease, and current tobacco smoker. Her primary care provider is She presents to the emergency department yesterday afternoon with a chief complaint of gradually worsening shortness of breath over the last 24 to 48 hours. Associated nonproductive cough.Workup in the emergency department including a chest x-ray demonstrating subtle bibasilar airspace opacities, concerning for pneumonia possibly superimposed on chronic fibrotic changes. Viral screen was negative for influenza, RSV, COVID. Labs including CBC with a WBC count of 13.4, hemoglobin 10.2, platelets 192. D-dimer was low at 0.38. CMP: Sodium 132, potassium 4.6, chloride 104, serum bicarb 19, BUN 29, creatinine 1.49, glucose 276. Lactic 1. LFTs unremarkable. Troponins less than 0.012. NT proBNP 2150. Patient currently being evaluated emergency department. She is on 3 L/min nasal cannula, no respiratory distress. She reports increasing worsening shortness of breath over the last 24 to 48 hours. Associated nonproductive cough as described above. She is a current tobacco smoker, previously 1 pack/day, has weaned down to 5 to 6 cigarettes/day approximately 3 years ago. Denies history of previously diagnosed COPD or asthma. Low-grade fevers, as high as 99.9 F. No known sick contacts, however, did attend a [employer] over the weekend. Also, reports nausea without emesis. No abdominal pain, no diarrhea.Current vital signs include a temperature of 99.5 F, heart rate 88 bpm, blood pressure 136/63 mmHg, nontachypneic on 3 L/min nasal cannula, SpO2 reading 94% on bedside monitor. Review of Systems Constitutional: Reports chills, Reports fatigue, Reports fever, Denies poor appetite, Denies weight gain, Denies weight loss Ears, nose, mouth and throat: Denies headache, Denies nasal congestion, Denies nasal discharge, Denies post-nasal drip, Denies sinus pain, Denies sinus pressure, Denies sore throat Cardiovascular: Reports dyspnea on exertion, Denies chest pain, Denies leg edema, Denies lightheadedness, Denies orthopnea, Denies palpitations Respiratory: Reports congestion, Reports cough, Reports dyspnea, Denies cough with sputum, Denies home oxygen, Denies wheezing Gastrointestinal: Reports nausea, Denies abdominal pain, Denies constipation, Denies diarrhea, Denies hematemesis, Denies hematochezia, Denies melena, Denies vomiting Genitourinary: Denies dysuria Integumentary: Denies rash Neurological: Denies seizures, Denies syncope Psychiatric: Denies anxiety, Denies depression Past Medical History Past Medical History: Diabetes Mellitus, Eye Disorder, GERD/Reflux, Hyperlipidemia, Hypertension, Osteoarthritis (OA), Renal Disease Additional Past Medical History / Comment(s): Limited mobility right shoulder/arm. "Hx Macular degeneration bilateral eyes, resolved." Heart murmur. "Poor kidney function due to Diabetes." History of Any Multi-Drug Resistant Organisms: None Reported Past Surgical History: Cholecystectomy, Orthopedic Surgery, Tonsillectomy Additional Past Surgical History / Comment(s): Neck fusion, carpel tunnel surgery, left ring finger trigger finger surgery, right shoulder surgery, heel spur surgery. Epidural injections. Past Anesthesia/Blood Transfusion Reactions: No Reported Reaction Past Psychological History: No Psychological Hx Reported Past Alcohol Use History: None Reported Past Drug Use History: None Reported - Past Family History Sister(s) Family Medical History: Cancer Additional Family Medical History / Comment(s): Breast cancer. Medications and Allergies Home Medications Medication Instructions Recorded Confirmed Type Ezetimibe/Simvastatin [Vytorin 1 each PO DAILY 02/20/14 04/05/19 History 10-80 mg Tablet] glipiZIDE [Glucotrol] 10 mg PO AC-BRKFST 02/20/14 04/05/19 History sitaGLIPtin [Januvia] 100 mg PO QAM 02/20/14 04/05/19 History C,E,Zinc,Copper 11/Ujdgy7f/Lut 1 each PO DAILY 04/03/19 04/05/19 History [Ocuvite Adult 50 Plus Softgel] Cholecalciferol [Vitamin D3 (25 2,000 unit PO DAILY 04/03/19 04/05/19 History Mcg = 1000 Iu)] HYDROcodone/APAP 7.5-325MG [[place] 1 tab PO TID PRN 04/03/19 04/05/19 History 7.5-325] Losartan Potassium 50 mg PO QAM 04/03/19 04/05/19 History [place]-3 Acid Ethyl Esters [Lovaza] 4 gm PO DAILY 04/03/19 04/05/19 History Pioglitazone [Actos] 15 mg PO DAILY 04/03/19 04/05/19 History Allergies Allergy/AdvReac Type Severity Reaction Status Date / Time tetanus immune globulin Allergy Swelling Verified 08/28/24 03:05 Physical Exam Vitals: Vital Signs Temp Pulse Resp BP Pulse Ox 08/28/24 05:53 97 08/28/24 05:33 93 22 141/51 96 08/28/24 05:25 92 22 95 08/28/24 04:48 99.5 F 08/28/24 04:30 95 22 151/54 99 08/28/24 04:17 100 08/28/24 04:00 93 22 167/53 100 08/28/24 03:57 98 08/28/24 03:56 98 08/28/24 03:38 85 08/28/24 03:05 99.9 F H 94 22 206/78 97 Intake and Output 08/27/24 08/27/24 08/28/24 14:59 22:59 06:59 Other: Weight 72.575 kg GENERAL EXAM: Alert, 84-year-old white female, on 3 L/min nasal cannula,, comfortable in no apparent distress. HEAD: Normocephalic and atraumatic EYES: Normal reaction of pupils, equal size. NOSE: Clear with pink turbinates. THROAT: No erythema or exudates. NECK: No masses, no JVD. CHEST: No chest wall deformity. LUNGS: Equal air entry with minimal bibasilar crackles. Minimal bilateral posterior expiratory wheezing. No conversational dyspnea or accessory muscle use while at rest CVS: S1 and S2 normal with no audible murmur, regular rhythm. No extra heart sounds ABDOMEN: No hepatosplenomegaly, active bowel sounds, no guarding or rigidity. SPINE: No scoliosis or deformity SKIN: No rashes CENTRAL NERVOUS SYSTEM: No focal deficits, tone is normal in all 4 extremities. EXTREMITIES: There is no peripheral edema, clubbing, or cyanosis. Peripheral pulses are intact. Results - Laboratory Findings CBC and BMP: 08/28/24 03:24 08/28/24 03:24 PT/INR, D-dimer PT 11.0 sec (10.0-12.5) 08/28/24 03:24 INR 1.0 (<1.2) 08/28/24 03:24 D-Dimer 0.38 mg/L FEU (<0.60) 08/28/24 03:24 Abnormal lab findings: Abnormal Labs 08/28/24 08/28/24 03:24 03:24 WBC 13.4 H RBC 3.28 L Hgb 10.2 L Hct 32.9 L MCV 100.3 H Neutrophils # 12.4 H Lymphocytes # 0.3 L Sodium 132 L Carbon Dioxide 19 L BUN 29 H Creatinine 1.49 H Glucose 276 H AST 42 H ALT 49 H Total Protein 6.1 L - Diagnostic Findings Chest x-ray: image reviewed Assessment and Plan Assessment: Acute hypoxic respiratory failure, on 3 L/min nasal cannula, chest x-ray demonstrating subtle bibasilar airspace opacities, concerning for pneumonia possibly superimposed on chronic fibrotic changes. Viral screen negative for in fluenza, RSV, COVID. Suspect underlying COPD, in exacerbation Acute leukocytosis Acute on chronic kidney disease Anemia Diabetes mellitus type 2 Hypertension History of hyperlipidemia Current ongoing tobacco dependence Plan: Patient's medications, labs, imaging reviewed Continue supplemental oxygen, to maintain oxygen saturation 92% or greater Start combination of DuoNebs, budesonide inhalation, formoterol inhalation, and IV Solu-Medrol Continue empiric antibiotics Smoking cessation counseling performed Nicotine replacement patch provided We will continue to follow, additional recommendations forthcoming I have personally seen and examined the patient, performed the documentation and the assessment and plan as written. Number of minutes spent on the visit:20 Time with Patient: Greater than 30
[2024-08-28] MEDS: IPRATROPIUM-ALBUTEROL 3 ML NEB INHALATION SCH (07:54)
[2024-08-28] MEDS: FORMOTEROL FUMARATE 20 MCG/2 ML NEBU INHALATION SCH (07:55)
[2024-08-28] MEDS: BUDESONIDE 1 MG/2 ML NEBU INHALATION SCH (07:55)
[2024-08-28] MEDS: ENOXAPARIN 30 MG/0.3 ML SYRINGE SQ SCH (07:58)
[2024-08-28] MEDS: NICOTINE 14MG/24HR PATCH TRANSDERM SCH (07:59)
[2024-08-28] MEDS: guaiFENesin 600 MG TABLET.ER PO SCH (07:59)
[2024-08-28] MEDS ORDERED: BUDESONIDE 0.5 MG/2 ML NEBU INHALATION SCH (08:00)
[2024-08-28] MEDS ORDERED: DEXTROSE 50% SYRINGE 50 ML IVP PRN ×2 (08:03)
[2024-08-28] MEDS: SODIUM CHLORIDE 0.9% 1,000 ML IV SCH (08:19)
[2024-08-28 08:30] LABS: Glucose,Whole Blood 410 mg/dL (70-110)
[2024-08-28] MEDS ORDERED: EZETIMIBE 10 MG TAB PO SCH (09:00)
[2024-08-28] MEDS ORDERED: ENOXAPARIN 40 MG/0.4 ML SYRINGE SQ SCH (09:00)
[2024-08-28] MEDS: ATORVASTATIN 40 MG TAB PO SCH (09:29)
[2024-08-28] MEDS: EZETIMIBE 10 MG TAB PO SCH (09:34)
[2024-08-28 11:46] LABS: Glucose,Whole Blood 478 mg/dL (70-110)
--- NOTE | 2024-08-28 11:49 | P.HPIM ---
History of Present Illness H&P Date: 08/28/24 History of Presenting Illness: Patient is a very pleasant 84-year-old female with a past medical history of hypertension, hyperlipidemia, qjm-ddnjole-ngnxdosfx diabetes mellitus, CKD stage IIIa, and nicotine dependence, . She presented to the emergency department with a chief complaint of shortness of breath. Patient reports progressively worsening shortness of breath x 2 days accompanied by nonproductive cough. She denies fever, chills, diaphoresis, chest pain, palpitations, abdominal pain, nausea, vomiting, or experiencing any numbness/tingling/weakness/swelling in her extremities. Upon arrival to our facility, patient underwent evaluation in the emergency department. Signs upon arrival show blood pressure 206/78, heart rate 94, respiratory rate 22, temp 99.9 F, and SpO2 of 97% on 2 L. EKG was completed showing normal sinus rhythm with 93 bpm with T wave inversion in lateral lead aVL and no significant ST abnormalities upon personal review and interpretation. Chest x-ray completed showing bibasilar opacities concerning for pneumonia versus chronic fibrotic changes. Labs completed and reviewed. CBC showing leukocytosis with WBC count of 13.4 and macrocytic anemia with hemoglobin of 10.2 and MCV of 100.3. Coagulation profile normal findings. D- dimer negative at 0.38. BMP showing hyponatremia with sodium of 132, hypocarbia with bicarb of 19, and an acute kidney injury with BUN of 29, creatinine of 1.49 with baseline creatinine of 1.1. Blood glucose was elevated at 276. Lactic acid with normal at 1.0. Magnesium 1.9. Liver profile showing elevated AST of 42 and ALT of 49 otherwise normal findings. Troponin was negative at less than 0.012 and proBNP was 2150. Influenza A, influenza B, RSV, and COVID PCR's were negative. Patient admitted under services with consultation to pulmonology. Review of systems: Pertinent positives and negatives as discussed in HPI, a complete review of systems was performed and all other systems are negative. Physical exam: Vital signs reviewed and stable. General: Nontoxic, no distress and appears stated age. Derm: Skin warm and dry, normal coloration for ethnicity. Head: Atraumatic, normocephalic and symmetric. Eyes: EOM's intact, no lid lag, and anicteric sclera Mouth: no lip lesions, mucus membranes moist Cardiovascular: regular rate and rhythm with normal S1S2, no murmur, positive posterior tibial pulses bilaterally, and cap refill < 2 seconds. Lungs: Respirations even, regular, and unlabored on 3 L O2 via nasal cannula. Lungs bibasilar crackles with diffuse expiratory wheezes. Abdominal: soft, nontender to palpation, no guarding, no appreciable organomegaly Ext: ROM intact. No gross muscle atrophy, no edema, no contractures Neuro: Speech clear, face symmetrical and CN II-XII grossly intact with no noted focal neuro deficits Psych: Alert and oriented to person, place, time, and situation. Appropriate and pleasant affect. Assessment and Plan of Care: Acute respiratory failure with hypoxia Community-acquired pneumonia Suspected COPD exacerbation Nicotine dependence -Consult associate attorney -Oxygenation to be administered and titrated as needed to maintain SPO2 equal to or greater than 92% -Telemetry monitoring. -Monitor pulse-oximetry -Duonebs scheduled 4 times daily and every 2 hours as needed for SOB and/or wheezing -Incentive Spirometry -Steroids: Solu-Medrol 60 mg IVP every 6 hours -Antibiotics: Rocephin 2 g daily and Zithromax 500 mg daily -Continue antibiotics pending procalcitonin results. -Discussed and educated patient on importance of smoking cessation. Continue nicotine patch 14 mg daily. Hypertensive urgency upon arrival -Blood pressures improved without intervention currently 139/58. -Hold olmesartan secondary to acute kidney injury, monitor vital signs closely and continue amlodipine 2.5 mg twice daily. Acute kidney injury on stage IIIa chronic kidney disease -Hold olmesartan and provide patient with gentle IV fluid hydration with 0.9% no rmal saline at 100 cc/h. -Monitor renal function closely with repeat a.m. labs. Type II awb-nlginoh-xffxfegdx diabetes mellitus with hyperglycemia -Hold Januvia, Actos, and glipizide and placed patient on glycemic protocol with NovoLog sliding scale. Follow-up on hemoglobin A1c. Hyperlipidemia -Continue daily medication regimen with Vytorin 10/80 mg tablet daily. Data and imaging reviewed: - As stated above in HPI The patient is admitted with an anticipated greater than 2 midnight stay for evaluation of acute to community-acquired pneumonia concerns of possible COPD exacerbation CODE STATUS: Full code DVT prophylaxis: Lovenox Discussed with: ED provider, patient, and RN Anticipated discharge date: Likely 24 to [address]: Home Patient was seen independently by Nurse Practitioner. This document was prepared using [employer] dictation software. Please allow for errors in housekeeping/laundry supervisor while rare they do occur. Cedric Guevara NP rendered care for this patient independently, reviewed the findings and plan as documented in the note above and agree with plan. I did not physically speak with or examine the patient on this date. Past Medical History Past Medical History: Diabetes Mellitus, Eye Disorder, GERD/Reflux, Hyperlipidemia, Hypertension, Osteoarthritis (OA), Renal Disease Additional Past Medical History / Comment(s): Limited mobility right shoulder/arm. "Hx Macular degeneration bilateral eyes, resolved." Heart murmur. "Poor kidney function due to Diabetes." History of Any Multi-Drug Resistant Organisms: None Reported Past Surgical History: Cholecystectomy, Orthopedic Surgery, Tonsillectomy Additional Past Surgical History / Comment(s): Neck fusion, carpel tunnel surgery, left ring finger trigger finger surgery, right shoulder surgery, heel spur surgery. Epidural injections. Past Anesthesia/Blood Transfusion Reactions: No Reported Reaction Past Psychological History: No Psychological Hx Reported Past Alcohol Use History: None Reported Past Drug Use History: None Reported - Past Family History Sister(s) Family Medical History: Cancer Additional Family Medical History / Comment(s): Breast cancer. Medications and Allergies Home Medications Medication Instructions Recorded Confirmed Type Ezetimibe/Simvastatin [Vytorin 1 tab PO DAILY 02/20/14 08/28/24 History 10-80 mg Tablet] sitaGLIPtin [Januvia] 100 mg PO DAILY 02/20/14 08/28/24 History HYDROcodone/APAP 7.5-325MG [[place] 1 tab PO TID PRN 04/03/19 08/28/24 History 7.5-325] Cetirizine HCl [Zyrtec] 10 mg PO DAILY 08/28/24 08/28/24 History Cholecalciferol [Vitamin D3 (25 50 mcg PO DAILY 08/28/24 08/28/24 History Mcg = 1000 Iu)] Olmesartan Medoxomil [Benicar] 30 mg PO DAILY 08/28/24 08/28/24 History Pioglitazone [Actos] 30 mg PO DAILY 08/28/24 08/28/24 History Vit C/E/Zn/Coppr/Lutein/Zeaxan 1 cap PO BID 08/28/24 08/28/24 History [Preservision Areds 2 Softgel] amLODIPine [Norvasc] 2.5 mg PO BID 08/28/24 08/28/24 History glipiZIDE XL [Glucotrol Xl] 10 mg PO DAILY 08/28/24 08/28/24 History Allergies Allergy/AdvReac Type Severity Reaction Status Date / Time tetanus immune globulin Allergy Swelling Verified 08/28/24 08:29 cefdinir [From Omnicef] AdvReac Nausea Verified 08/28/24 08:29 codeine AdvReac Nausea Verified 08/28/24 08:29 metformin AdvReac STOMACH Verified 08/28/24 08:29 ISSUES Physical Exam Vitals: Vital Signs Temp Pulse Resp BP Pulse Ox 08/28/24 07:19 99.2 F 85 16 139/50 95 08/28/24 06:00 88 24 136/63 94 L 08/28/24 05:53 97 08/28/24 05:33 93 22 141/51 96 08/28/24 05:25 92 22 95 08/28/24 04:48 99.5 F 08/28/24 04:30 95 22 151/54 99 08/28/24 04:17 100 08/28/24 04:00 93 22 167/53 100 08/28/24 03:57 98 08/28/24 03:56 98 08/28/24 03:38 85 08/28/24 03:05 99.9 F H 94 22 206/78 97 Intake and Output 08/27/24 08/28/24 08/28/24 22:59 06:59 14:59 Other: Weight 72.575 kg Results CBC & Chem 7: 08/28/24 03:24 08/28/24 03:24 Labs: Abnormal Lab Results - Last 24 Hours (Table) 08/28/24 08/28/24 Range/Units 03:24 03:24 WBC 13.4 H (3.8-10.6) k/uL RBC 3.28 L (3.80-5.40) m/uL Hgb 10.2 L (11.4-16.0) gm/dL Hct 32.9 L (34.0-46.0) % MCV 100.3 H (80.0-100.0) fL Neutrophils # 12.4 H (1.3-7.7) k/uL Lymphocytes # 0.3 L (1.0-4.8) k/uL Sodium 132 L (137-145) mmol/L Carbon Dioxide 19 L (22-30) mmol/L BUN 29 H (7-17) mg/dL Creatinine 1.49 H (0.52-1.04) mg/dL Glucose 276 H (74-99) mg/dL AST 42 H (14-36) U/L ALT 49 H (4-34) U/L Total Protein 6.1 L (6.3-8.2) g/dL
[2024-08-28] MEDS: methylPREDNISolone SOD SUCCI 125 MG/2 ML VIAL IV SCH (12:00)
[2024-08-28] MEDS ORDERED: HYDROcodone/APAP 5-325MG 1 EACH TAB PO PRN (12:00)
[2024-08-28] MEDS: INSULIN LISPRO (HumaLOG) 100 UNIT/ML 10 mL VL SQ SCH (12:00)
[2024-08-28] MEDS ORDERED: ACETAMINOPHEN TAB 325 MG TAB PO PRN (12:00)
[2024-08-28] MEDS: amLODIPine 2.5 MG TAB PO SCH (12:36)
[2024-08-28] MEDS: PROCHLORPERAZINE INJ 10 MG/2 ML VIAL IVP PRN (13:24)
[2024-08-28 17:08] LABS: Glucose,Whole Blood 375 mg/dL (70-110)
[2024-08-28] MEDS: MAG HYDROX/AL HYDROX/SIMETH 30 ML CUP PO STA (17:44)
[2024-08-28] MEDS: HYDROcodone/APAP 7.5-325MG 1 EACH TAB PO PRN (18:33)
[2024-08-28] MEDS ORDERED: MORPHINE SULFATE 2 MG/ML SYRINGE IVP PRN (19:00)
[2024-08-28] MEDS: MORPHINE SULFATE 4 MG/ML SYRINGE IVP STA (19:40)
[2024-08-28] MEDS: amLODIPine 2.5 MG TAB PO STA (19:40)
[2024-08-28 23:03] LABS: Glucose,Whole Blood 313 mg/dL (70-110)
[2024-08-29] MEDS ORDERED: ZINC OXIDE PASTE (Z-GUARD) 1 APPLIC TOPICAL PRN (00:32)
[2024-08-29] MEDS: VIT A,C & E-LUTEIN-MINERALS 1 EACH TAB PO SCH (00:52)
[2024-08-29 06:27] LABS: Glucose,Whole Blood 245 mg/dL (70-110)
[2024-08-29] MEDS: EZETIMIBE 10 MG TAB PO SCH (08:04)
[2024-08-29 08:44] LABS: HCT 26.2 % (37.2-46.3); HGB 8.4 g/dL (12.0-15.0); MCH 31.8 pg (27.0-32.0); MCHC 32.1 g/dL (32.0-37.0); MCV 99.2 FL (80.0-97.0); Mean Platelet Volume 11.8 FL (9.5-12.2); NRBC Per 100 WBC 0 X 10*3/uL (0.00-0.01); Platelet Count 183 X 10*3/uL (140-440); RBC 2.64 X 10*6/uL (4.10-5.20); RDW 14.3 % (11.5-14.5); WBC 21.35 X 10*3/uL (4.50-10.00)
[2024-08-29 08:49] LABS: Blood Urea Nitrogen 44.2 mg/dL (9.0-27.0); Calcium 8.3 mg/dL (8.7-10.3); Carbon Dioxide 21.1 mmol/L (21.6-31.8); Chloride 105 mmol/L (96-109); Glucose 203 mg/dL (70-110); Magnesium 2.4 mg/dL (1.5-2.4); Potassium 4.9 mmol/L (3.5-5.5); Sodium 137 mmol/L (135-145)
[2024-08-29] MEDS ORDERED: predniSONE 20 MG TAB PO SCH (09:00)
[2024-08-29] MEDS: AZITHROMYCIN 500 MG TAB PO SCH (09:03)
[2024-08-29] MEDS: amLODIPine 2.5 MG TAB PO ONE (09:04)
[2024-08-29 11:08] LABS: Glucose,Whole Blood 310 mg/dL (70-110)
--- NOTE | 2024-08-29 13:47 | P.PN ---
Subjective Progress Note Date: 08/29/24 Hospital Course: Patient is a very pleasant 84-year-old female with a past medical history of hypertension, hyperlipidemia, aft-xbmxaiz-wahedfkqi diabetes mellitus, CKD stage IIIa, and nicotine dependence, . She presented to the emergency department with a chief complaint of shortness of breath. Patient reports progressively worsening shortness of breath x 2 days accompanied by nonproductive cough. She denies fever, chills, diaphoresis, chest pain, palpitations, abdominal pain, nausea, vomiting, or experiencing any numbness/tingling/weakness/swelling in her extremities. Upon arrival to our facility, patient underwent evaluation in the emergency department. Signs upon arrival show blood pressure 206/78, heart rate 94, respiratory rate 22, temp 99.9 F, and SpO2 of 97% on 2 L. EKG was completed showing normal sinus rhythm with 93 bpm with T wave inversion in lateral lead aVL and no significant ST abnormalities upon personal review and interpretation. Chest x-ray completed showing bibasilar opacities concerning for pneumonia versus chronic fibrotic changes. Labs completed and reviewed. CBC showing leukocytosis with WBC count of 13.4 and macrocytic anemia with hemoglobin of 10.2 and MCV of 100.3. Coagulation profile normal findings. D- dimer negative at 0.38. BMP showing hyponatremia with sodium of 132, hypocarbia with bicarb of 19, and an acute kidney injury with BUN of 29, creatinine of 1.49 with baseline creatinine of 1.1. Blood glucose was elevated at 276. Lactic acid with normal at 1.0. Magnesium 1.9. Liver profile showing elevated AST of 42 and ALT of 49 otherwise normal findings. Troponin was negative at less than 0.012 and proBNP was 2150. Influenza A, influenza B, RSV, and COVID PCR's were negative. Patient admitted under services with consultation to pulmonology. Physical exam: Patient seen and fully evaluated at bedside this morning. She was getting up to bedside commode. Respirations were even and unlabored on 3 L O2 via nasal cannula. Patient does have diffuse rhonchi and soft expiratory wheezes but was able to speak in sentences without conversational dyspnea noted. Patient did have episode this morning in which oxygen saturations decreased at rest down to 87% on 2 L and was increased to 3 L with SpO2 decreasing to 93%. Vital signs reviewed and stable. General: Nontoxic, no distress and appears stated age. Derm: Skin warm and dry, normal coloration for ethnicity. Head: Atraumatic, normocephalic and symmetric. Eyes: EOM's intact, no lid lag, and anicteric sclera Mouth: no lip lesions, mucus membranes moist Cardiovascular: regular rate and rhythm with normal S1S2, no murmur, positive posterior tibial pulses bilaterally, and cap refill < 2 seconds. Lungs: Respirations even, regular, and unlabored on 3 L O2 via nasal cannula. Lungs diffuse rhonchi with soft expiratory wheezes Abdominal: soft, nontender to palpation, no guarding, no appreciable organomegaly Ext: ROM intact. No gross muscle atrophy, no edema, no contractures Neuro: Speech clear, face symmetrical and CN II-XII grossly intact with no noted focal neuro deficits Psych: Alert and oriented to person, place, time, and situation. Appropriate and pleasant affect. Assessment and Plan of Care: Acute respiratory failure with hypoxia Community-acquired pneumonia Suspected COPD exacerbation Leukocytosis Nicotine dependence -Pulmonology following, discussed plan in detail with pulmonology CLAMPER and pulmono logist. -Oxygenation to be administered and titrated as needed to maintain SPO2 equal to or greater than 92%. Currently remains on 3 L O2 via nasal cannula. -Telemetry monitoring. -Monitor pulse-oximetry -Duonebs scheduled 4 times daily and every 2 hours as needed for SOB and/or wheezing -Incentive Spirometry -Steroids: Solu-Medrol 60 mg IVP every 6 hours -Antibiotics: Rocephin 2 g daily and Zithromax 500 mg daily (day 2) -Blood cultures showing no growth to date. -Continue to encourage and educated patient on importance of smoking cessation. Continue nicotine patch 14 mg daily. Acute kidney injury on stage IIIa chronic kidney disease Macrocytic anemia, possibly acute on chronic secondary to CKD. No previous hemoglobin available for comparison. -Hold olmesartan and continue with gentle IV fluid hydration with 0.9% normal saline at 100 cc/h. -Hemoglobin worsening today from 10.2 down to 8.4. Patient denies having any hematemesis, bleeding, hematuria, melena, or hematochezia. Possibly secondary to diuresis. Will place order for iron profile and repeat CBC this afternoon and again CBC tomorrow morning. Will follow closely for improvement/resolution of microcytic anemia. -Monitor renal function closely with repeat a.m. labs. If renal function worsens will place order for ultrasound renal/kidney/bladder and consult to nephrology. -Bladder scan to monitor for postvoid residual/urinary retention. Hypertensive urgency upon arrival with history of hypertension -Amlodipine increased to 5 mg twice daily. Olmesartan held secondary to VAZQUEZ. -Continue to monitor vital signs closely. Type II mpr-lqhgihq-lheefrsnt diabetes mellitus with hyperglycemia -Hold Januvia, Actos, and glipizide and continue glycemic protocol with NovoLog sliding scale. -Hemoglobin A1c 6.5%. Recurrent episodes of hyperglycemia likely secondary to IV steroids. Hyperlipidemia -Continue daily medication regimen with Vytorin 10/80 mg tablet daily. Data and imaging reviewed: -Morning labs reviewed. CBC showing worsening leukocytosis with WBC count of 21.35 and hemoglobin of 8.4. BMP showing elevated bicarb of 21.1 and worsening renal function with BUN of 44.2, creatinine 1.7, GFR of 29. Magnesium 2.4. -Vital signs reviewed. Blood pressure 141/68, heart rate 90, respiratory rate 18, temp 98.1 F, and SpO2 of 93% on 3 L. Temperature high over the past 24 inez rs was 99.9 F CODE STATUS: Full code DVT prophylaxis: Lovenox Discussed with: Patient, RN, cardiac rehab nurse, and pulmonary CLAMPER Anticipated discharge date: Pending clinical course Anticipated discharge place: Home Patient was seen independently by Nurse Practitioner. This document was prepared using [employer] dictation software. Please allow for errors in logistic specialist while rare they do occur. Cedric Guevara, CLAMPER rendered care for this patient independently, reviewed the findings and plan as documented in the note above and agree with plan. I did not physically speak with or examine the patient on this date. Objective - Vital Signs Vital signs: Vital Signs Temp 98.1 F 08/29/24 07:19 Pulse 92 08/29/24 08:25 Resp 18 08/29/24 07:19 BP 141/68 08/29/24 07:19 Pulse Ox 87 L 08/29/24 08:02 FiO2 Intake & Output 08/28/24 08/29/24 08/29/24 18:59 06:59 18:59 Output Total 1 Balance -1 Weight 72.575 kg Output: Urine/Stool Mix 1 Other: Voiding Method Bedside Commode # Voids 4 - Labs CBC & Chem 7: 08/29/24 03:06 08/29/24 03:06 Labs: Abnormal Lab Results - Last 24 Hours (Table) 08/28/24 08/28/24 08/28/24 Range/Units 03:24 08:28 11:43 POC Glucose (mg/dL) 410 H 478 H (70-110) mg/dL Hemoglobin A1c 6.5 H (<=6.0) % 08/28/24 08/28/24 08/29/24 Range/Units 17:03 22:59 06:26 POC Glucose (mg/dL) 375 H 313 H 245 H (70-110) mg/dL Hemoglobin A1c (<=6.0) %
[2024-08-29] MEDS: PANTOPRAZOLE 40 MG/10 ML VIAL IVP ONE (13:58)
[2024-08-29] MEDS: LIDOCAINE VISCOUS 2% 15 ML CUP PO ONE (13:59)
[2024-08-29] MEDS: HYOSCYAMINE ELIXIR 250 MCG/10 ML BTL PO STA (13:59)
[2024-08-29] MEDS: MAG HYDROX/AL HYDROX/SIMETH 30 ML CUP PO STA (14:00)
--- NOTE | 2024-08-29 14:25 | P.PN ---
Subjective Progress Note Date: 08/29/24 Patient is a 84-year-old female with past medical history significant for hypertension, hyperlipidemia, diabetes mellitus, chronic kidney disease, and current tobacco smoker. Her primary care provider is She presents to the emergency department yesterday afternoon with a chief complaint of gradually worsening shortness of breath over the last 24 to 48 hours. Associated nonproductive cough.Workup in the emergency department including a chest x-ray demonstrating subtle bibasilar airspace opacities, concerning for pneumonia possibly superimposed on chronic fibrotic changes. Viral screen was negative for influenza, RSV, COVID. Labs including CBC with a WBC count of 13.4, hemoglobin 10.2, platelets 192. D-dimer was low at 0.38. CMP: Sodium 132, potassium 4.6, chloride 104, serum bicarb 19, BUN 29, creatinine 1.49, glucose 276. Lactic 1. LFTs unremarkable. Troponins less than 0.012. NT proBNP 2150. Patient currently being evaluated emergency department. She is on 3 L/min chantell al cannula, no respiratory distress. She reports increasing worsening shortness of breath over the last 24 to 48 hours. Associated nonproductive cough as described above. She is a current tobacco smoker, previously 1 pack/day, has weaned down to 5 to 6 cigarettes/day approximately 3 years ago. Denies history of previously diagnosed COPD or asthma. Low-grade fevers, as high as 99.9 F. No known sick contacts, however, did attend a [employer] over the weekend. Also, reports nausea without emesis. No abdominal pain, no diarrhea.Current vital signs include a temperature of 99.5 F, heart rate 88 bpm, blood pressure 136/63 mmHg, nontachypneic on 3 L/min nasal cannula, SpO2 r eading 94% on bedside monitor. The patient is seen today August 29, 2024 in follow-up on the regular medical floor. She is currently standing up near her bed. Awake and alert in no acute distress. Breathing a bit easier today compared to yesterday. Still with a congested cough. She is maintaining good O2 saturations in the 90s on 3 L/min per nasal cannula. Blood culture reveals no growth thus far. White count 21.3. Hemoglobin 8.4. Platelets 183. Sodium 137. Potassium 4.9. Bicarb 21. BUN 44. Creatinine 1.7. Glucose 203. She remains on ceftriaxone and azithromycin. She is continued on DuoNeb inhalations, Pulmicort and Perforomist inhalations, Solu-Medrol. NicoDerm patch in place. Receiving normal saline at 100 mL/h. Objective - Vital Signs Vital signs: Vital Signs Temp 98.3 F 08/29/24 13:03 Pulse 90 08/29/24 13:03 Resp 26 H 08/29/24 13:05 BP 186/62 08/29/24 13:03 Pulse Ox 95 08/29/24 13:03 FiO2 Intake & Output 08/28/24 08/29/24 08/29/24 18:59 06:59 18:59 Intake Total 120 Output Total 1 Balance -1 120 Weight 72.575 kg Intake: Oral 120 Output: Urine/Stool Mix 1 Other: Voiding Method Bedside Commode # Voids 4 1 - Exam GENERAL EXAM: Alert, 84-year-old female, standing at the bedside, on 3 L/min nasal cannula,, comfortable in no apparent distress. HEAD: Normocephalic and atraumatic EYES: Normal reaction of pupils, equal size. NOSE: Clear with pink turbinates. THROAT: No erythema or exudates. NECK: No masses, no JVD. CHEST: No chest wall deformity. LUNGS: Equal air entry with minimal bibasilar crackles. Minimal bilateral posterior expiratory wheezing. No conversational dyspnea. CVS: S1 and S2 normal with no audible murmur, regular rhythm. No extra heart sounds ABDOMEN: No hepatosplenomegaly, active bowel sounds, no guarding or rigidity. SPINE: No scoliosis or deformity SKIN: No rashes CENTRAL NERVOUS SYSTEM: No focal deficits, tone is normal in all 4 extremities. EXTREMITIES: There is no peripheral edema, clubbing, or cyanosis. Peripheral pulses are intact. - Labs CBC & Chem 7: 08/29/24 03:06 08/29/24 03:06 Labs: Abnormal Lab Results - Last 24 Hours (Table) 08/28/24 08/28/24 08/29/24 Range/Units 17:03 22:59 03:06 WBC 21.35 H (4.50-10.00) X 10*3/uL RBC 2.64 L (4.10-5.20) X 10*6/uL Hgb 8.4 L (12.0-15.0) g/dL Hct 26.2 L (37.2-46.3) % MCV 99.2 H (80.0-97.0) FL Carbon Dioxide (21.6-31.8) mmol/L BUN (9.0-27.0) mg/dL Creatinine (0.6-1.5) mg/dL Est GFR (CKD-EPI) (>=60) BUN/Creatinine Ratio (12.00-20.00) Ratio Glucose (70-110) mg/dL POC Glucose (mg/dL) 375 H 313 H (70-110) mg/dL Calcium (8.7-10.3) mg/dL 08/29/24 08/29/24 08/29/24 Range/Units 03:06 06:26 11:07 WBC (4.50-10.00) X 10*3/uL RBC (4.10-5.20) X 10*6/uL Hgb (12.0-15.0) g/dL Hct (37.2-46.3) % MCV (80.0-97.0) FL Carbon Dioxide 21.1 L (21.6-31.8) mmol/L BUN 44.2 H (9.0-27.0) mg/dL Creatinine 1.7 H (0.6-1.5) mg/dL Est GFR (CKD-EPI) 29 L (>=60) BUN/Creatinine Ratio 26.00 H (12.00-20.00) Ratio Glucose 203 H (70-110) mg/dL POC Glucose (mg/dL) 245 H 310 H (70-110) mg/dL Calcium 8.3 L (8.7-10.3) mg/dL Microbiology - Last 24 Hours (Table) 08/28/24 04:08 Blood Culture - Preliminary Blood Assessment and Plan Assessment: Acute hypoxic respiratory failure, on 3 L/min nasal cannula, chest x-ray demonstrating subtle bibasilar airspace opacities, concerning for pneumonia possibly superimposed on chronic fibrotic changes. Viral screen negative for influenza, RSV, COVID. Suspect underlying COPD, in exacerbation Acute leukocytosis Acute on chronic kidney disease Anemia Diabetes mellitus type 2 Hypertension History of hyperlipidemia Current ongoing tobacco dependence Plan: The patient was seen and evaluated Labs and medications reviewed Stable on 3 L nasal cannula Continue ceftriaxone and azithromycin Continue DuoNeb and elations Continue Pulmicort and performance inhalations Continue IV Solu-Medrol Educated regarding smoking cessation NicoDerm patch in place We will continue to follow I have personally seen and examined the patient, performed the documentation and the assessment and plan as written. Number of minutes spent on the visit: 10 Dictation was produced using [email or web address] dictation software. Please excuse any gr ammatical, word or spelling errors.
[2024-08-29 16:24] LABS: Glucose,Whole Blood 261 mg/dL (70-110)
[2024-08-29 17:09] LABS: HCT 27.8 % (34.0-46.0); HGB 8.8 gm/dL (11.4-16.0); Hypochromasia Moderate; MCH 31.1 pg (25.0-35.0); MCHC 31.6 g/dL (31.0-37.0); MCV 98.3 fL (80.0-100.0); Mean Platelet Volume 8.9; Platelet Count 206 k/uL (150-450); RBC 2.83 m/uL (3.80-5.40); RDW 13.9 % (11.5-15.5); WBC 25.8 k/uL (3.8-10.6)
[2024-08-29 20:09] LABS: Glucose,Whole Blood 329 mg/dL (70-110)
[2024-08-29 20:34] LABS: % Iron Saturation 6.02 (12.00-45.00)
[2024-08-29] MEDS: amLODIPine 5 MG TAB PO SCH (20:50)
[2024-08-29 22:52] LABS: Appearance,Urine Cloudy (Clear); Bacteria,Urine Rare /hpf; Bilirubin,Urine Negative (Negative); Blood,Urine Negative (Negative); Budding Yeast,Urine Rare /hpf; Color,Urine Light Yellow; Glucose,Urine (UA) Trace (Negative); Hyaline Casts,Urine 3 /lpf (0-2); Ketones,Urine Negative (Negative); Leukocyte Esterase,Urine Small (Negative); Mucus,Urine Rare /hpf; Nitrite,Urine Negative (Negative); PH, Urine 5.5 (5.0-8.0); Protein,Urine 3+ (Negative); RBC,Urine 2 /hpf (0-5); Specific Gravity,Urine 1.019 (1.001-1.035); Squamous Epithelial Cell,Urine <1 /hpf (0-4); Urobilinogen,Urine <2.0 mg/dL (<2.0); WBC,Urine 13 /hpf (0-5)
[2024-08-30 06:22] LABS: Glucose,Whole Blood 263 mg/dL (70-110)
--- NOTE | 2024-08-30 07:42 | XR ---
GE EXAMINATION TYPE: XR chest 1V portable DATE OF EXAM: 08/30/2024 6:51 AM COMPARISON: 08/28/2024 CLINICAL INDICATION: Female, 84 years old with history of F/U on pneumonia, continued hypoxia and O2 needs, TECHNIQUE: XR chest 1V portable views of the chest are obtained. FINDINGS: Demonstrated are scattered senescent parenchymal change. Patchy infiltrate right medial lung base persists although slightly improved. Continued follow-up adv ised. The heart is stable. Hilar and mediastinal structures are within normal limits. Degenerative changes are seen of the dorsal spine. IMPRESSION: 1. Patchy infiltrate right medial lung base persists although slightly improved. Continued follow-up advised. [facility], , 08/30/2024 7:40 AM
[2024-08-30 08:34] LABS: ALT 37 U/L (8-44); AST 38 U/L (13-35); Albumin 3.4 g/dL (3.8-4.9); Alkaline Phosphatase 49 U/L (41-126); BUN/Creat Ratio 31.11 Ratio (12.00-20.00); Calcium 8.6 mg/dL (8.7-10.3); Carbon Dioxide 18.7 mmol/L (21.6-31.8); Chloride 102 mmol/L (96-109); Glucose 231 mg/dL (70-110); Magnesium 2.5 mg/dL (1.5-2.4); Potassium 5.3 mmol/L (3.5-5.5); Sodium 131 mmol/L (135-145); Total Bilirubin <0.2 mg/dL (0.3-1.2); Total Protein 5.4 g/dL (6.2-8.2)
[2024-08-30 08:55] LABS: HCT 26.6 % (37.2-46.3); HGB 8.4 g/dL (12.0-15.0); MCH 31.5 pg (27.0-32.0); MCHC 31.6 g/dL (32.0-37.0); MCV 99.6 FL (80.0-97.0); Mean Platelet Volume 11.9 FL (9.5-12.2); NRBC Per 100 WBC 0 X 10*3/uL (0.00-0.01); Platelet Count 221 X 10*3/uL (140-440); RBC 2.67 X 10*6/uL (4.10-5.20); RDW 14.4 % (11.5-14.5); WBC 24.39 X 10*3/uL (4.50-10.00)
[2024-08-30] MEDS: PANTOPRAZOLE 40 MG/10 ML VIAL IVP SCH (09:06)
--- NOTE | 2024-08-30 09:48 | US ---
EXAMINATION TYPE: US kidneys/renal and bladder DATE OF EXAM: 08/30/2024 COMPARISON: CLINICAL INDICATION: Female, 84 years old with history of worsening VAZQUEZ; Portable inpatient exam. Hx renal cysts. TECHNIQUE: Grayscale imaging of the bilateral kidneys and urinary bladder: FINDINGS: EXAM MEASUREMENTS: Right Kidney: 10.2 x 5.1 x 5.0 cm Left Kidney: 9.8 x 3.8 x 4.5 cm Right Kidney: Multiple cysts seen, largest lower lat=2.4 x 2.0 x 2.1 cm Left Kidney: Multiple cysts seen, largest mid anterior = 10.7 x 11.8 x 7.3 cm Bladder: anechoic, distended Bilateral Jets not seen There is no evidence for hydronephrosis at this point in time. No nephrolithiasis is seen. No solid masses are identified. The urinary bladder is anechoic. IMPRESSION: Multiple simple cysts noted bilaterally. [facility], , 08/30/2024 9:45 AM
[2024-08-30 10:53] VITALS: RESP 18
[2024-08-30 11:55] LABS: Glucose,Whole Blood 343 mg/dL (70-110)
--- NOTE | 2024-08-30 11:58 | P.NPCON ---
History of Present Illness - Reason for Consult acute renal failure - History of Present Illness Patient is an 84-year-old female with history of hypertension, type 2 diabetes, CKD stage II- III A with previous creatinine 1.0 and 1.1 mg/dL in 2016. Patient is admitted to the hospital with complaints of shortness of breath and cough. She denied any significant fever No history of nausea vomiting or abdominal pain. Patient admits to decreased oral intake Serum creatinine was 1.49 on admission and increased to 1.8 today. Blood pressure has not been low, in fact it is high. Chest x-ray shows patchy infiltrates right lung. Currently maintained on IV fluids Patient has been on Benicar at home which is currently on hold. Patient has been voiding Past Medical History Past Medical History: Diabetes Mellitus, Eye Disorder, GERD/Reflux, Hyperlipidemia, Hypertension, Osteoarthritis (OA), Renal Disease Additional Past Medical History / Comment(s): Limited mobility right shoulder/arm. "Hx Macular degeneration bilateral eyes, resolved." Heart murmur. "Poor kidney function due to Diabetes." History of Any Multi-Drug Resistant Organisms: None Reported Past Surgical History: Cholecystectomy, Orthopedic Surgery, Tonsillectomy Additional Past Surgical History / Comment(s): Neck fusion, carpel tunnel surgery, left ring finger trigger finger surgery, right shoulder surgery, heel spur surgery. Epidural injections. Past Anesthesia/Blood Transfusion Reactions: No Reported Reaction Past Psychological History: No Psychological Hx Reported Smoking Status: Current every day smoker Past Alcohol Use History: None Reported Additional Past Alcohol Use History / Comment(s): Currently smokes 4-5 cigarettes daily, has been smoking since 19 yrs old. Past Drug Use History: None Reported - Past Family History Sister(s) Family Medical History: Cancer Additional Family Medical History / Comment(s): Breast cancer. Medications and Allergies Home Medications Medication Instructions Recorded Confirmed Type Ezetimibe/Simvastatin [Vytorin 1 tab PO DAILY 02/20/14 08/28/24 History 10-80 mg Tablet] sitaGLIPtin [Januvia] 100 mg PO DAILY 02/20/14 08/28/24 History HYDROcodone/APAP 7.5-325MG [Lula 1 tab PO TID PRN 04/03/19 08/28/24 History 7.5-325] Cetirizine HCl [Zyrtec] 10 mg PO DAILY 08/28/24 08/28/24 History Cholecalciferol [Vitamin D3 (25 50 mcg PO DAILY 08/28/24 08/28/24 History Mcg = 1000 Iu)] Olmesartan Medoxomil [Benicar] 30 mg PO DAILY 08/28/24 08/28/24 History Pioglitazone [Actos] 30 mg PO DAILY 08/28/24 08/28/24 History Vit C/E/Zn/Coppr/Lutein/Zeaxan 1 cap PO BID 08/28/24 08/28/24 History [Preservision Areds 2 Softgel] amLODIPine [Norvasc] 2.5 mg PO BID 08/28/24 08/28/24 History glipiZIDE XL [Glucotrol Xl] 10 mg PO DAILY 08/28/24 08/28/24 History Allergies Allergy/AdvReac Type Severity Reaction Status Date / Time tetanus immune globulin Allergy Swelling Verified 08/28/24 08:29 cefdinir [From Omnicef] AdvReac Nausea Verified 08/28/24 08:29 codeine AdvReac Nausea Verified 08/28/24 08:29 metformin AdvReac STOMACH Verified 08/28/24 08:29 ISSUES Physical Exam Vitals: Vital Signs Temp Pulse Pulse Pulse Resp BP Pulse Ox 08/30/24 09:24 74 08/30/24 09:09 78 08/30/24 09:08 78 08/30/24 08:58 98 08/30/24 08:53 72 08/30/24 06:56 98.2 F 80 18 152/68 93 L 08/30/24 01:11 98.4 F 85 20 143/63 93 L 08/29/24 22:23 92 08/29/24 22:10 92 08/29/24 22:09 92 08/29/24 21:59 93 08/29/24 20:30 90 18 08/29/24 19:10 98.5 F 90 18 169/67 95 08/29/24 16:47 80 08/29/24 16:35 84 08/29/24 14:00 97.9 F 88 18 161/67 94 L 08/29/24 13:05 26 H 08/29/24 13:03 98.3 F 90 26 H 186/62 95 Intake and Output 08/29/24 08/30/24 08/30/24 22:59 06:59 14:59 Output Total 300 Balance -300 Output: Urine 300 Other: Voiding Method Bedside Commode Bedside Commode # Voids 3 1 # Bowel Movements 1 Patient is awake, comfortable, no acute distress. Examination of the heart S1 and S2 Examination of the lungs bilateral breath sounds are heard Abdomen is soft nontender Examination of lower extremity shows no significant edema [employer]OR exam grossly intact Results - Lab Results Most recent lab results Calcium 8.6 mg/dL (8.7-10.3) L 08/30/24 05:36 Magnesium 2.5 mg/dL (1.5-2.4) H 08/30/24 05:36 08/30/24 05:36 08/30/24 05:36 Assessment and Plan Assessment: 1. Acute kidney injury, ATN, nonoliguric rule out urine retention. Ultrasound shows no evidence of hydronephrosis. UA shows 3+ protein no blood hyaline casts noted. Currently off of Benicar and maintained on IV fluids. 2. Community-acquired pneumonia 3. Acute hypoxic respiratory failure secondary to pneumonia 4. Hypertension with uncontrolled blood pressure on admission, currently improved. Benicar on hold 5. Anemia with significant iron deficiency noted with iron saturation at 6% 6. [place] metabolic acidosis secondary to acute kidney injury Plan: Continue with IV fluids, changed to Ringer lactate due to mild metabolic acidosis Continue to hold angiotensin receptor blockers Repeat labs in a.m. Add IV iron Continue to avoid nephrotoxic agents. Thank you for the consultation. We will continue to follow the patient with you during her hospitalization.
--- NOTE | 2024-08-30 12:26 | P.PN ---
Subjective Progress Note Date: 08/30/24 Hospital Course: Patient is a very pleasant 84-year-old female with a past medical history of hypertension, hyperlipidemia, [id number] diabetes mellitus, CKD stage IIIa, and nicotine dependence, . She presented to the emergency department with a chief complaint of shortness of breath. Patient reports progressively worsening shortness of breath x 2 days accompanied by nonproductive cough. She denies fever, chills, diaphoresis, chest pain, palpitations, abdominal pain, nausea, vomiting, or experiencing any numbness/tingling/weakness/swelling in her extremities. Upon arrival to our facility, patient underwent evaluation in the emergency department. Signs upon arrival show blood pressure 206/78, heart rate 94, respiratory rate 22, temp 99.9 F, and SpO2 of 97% on 2 L. EKG was completed showing normal sinus rhythm with 93 bpm with T wave inversion in lateral lead aVL and no significant ST abnormalities upon personal review and interpretation. Chest x-ray completed showing bibasilar opacities concerning for pneumonia versus chronic fibrotic changes. Labs completed and reviewed. CBC showing leukocytosis with WBC count of 13.4 and macrocytic anemia with hemoglobin of 10.2 and MCV of 100.3. Coagulation profile normal findings. D- dimer negative at 0.38. BMP showing hyponatremia with sodium of 132, hypocarbia with bicarb of 19, and an acute kidney injury with BUN of 29, creatinine of 1.49 with baseline creatinine of 1.1. Blood glucose was elevated at 276. Lactic acid with normal at 1.0. Magnesium 1.9. Liver profile showing elevated AST of 42 and ALT of 49 otherwise normal findings. Troponin was negative at less than 0.012 and proBNP was 2150. Influenza A, influenza B, RSV, and COVID PCR's were negative. Patient admitted under services with consultation to pulmonology. Physical exam: Patient seen and fully evaluated at bedside this morning. She is showing moderate improvement in respiratory status and is currently been successfully weaned off of oxygen with SpO2 of 98% on room air. Patient reports improvement of shortness of breath and expresses frustration over worsening renal function. Discussed with patient that orders were placed for renal ultrasound and evaluation by nephrology. Patient continues to deny any difficulties with urinary function, back pain, or suprapubic pain/pressure. She currently denies any complaints at this time. Vital signs reviewed and stable. General: Nontoxic, no distress and appears stated age. Derm: Skin warm and dry, normal coloration for ethnicity. Head: Atraumatic, normocephalic and symmetric. Eyes: EOM's intact, no lid lag, and anicteric sclera Mouth: no lip lesions, mucus membranes moist Cardiovascular: regular rate and rhythm with normal S1S2, no murmur, positive posterior tibial pulses bilaterally, and cap refill < 2 seconds. Lungs: Respirations even, regular, and unlabored on 3 L O2 via nasal cannula. Lungs much improved air movement, with soft expiratory wheezes noted but no rhonchi, rales, or crackles. Abdominal: soft, nontender to palpation, no guarding, no appreciable organomegaly Ext: ROM intact. No gross muscle atrophy, no edema, no contractures Neuro: Speech clear, face symmetrical and CN II-XII grossly intact with no noted focal neuro deficits Psych: Alert and oriented to person, place, time, and situation. Appropriate and pleasant affect. Assessment and Plan of Care: Acute respiratory failure with hypoxia Community-acquired pneumonia Suspected COPD exacerbation Leukocytosis Nicotine dependence -Pulmonology following, discussed plan in detail with pulmonology JACKER FEEDER and fleet director. -Oxygenation to be administered and titrated as needed to maintain SPO2 equal to or greater than 92%. Patient successfully weaned off oxygen currently 98% on room air.. -Telemetry monitoring. -Monitor pulse-oximetry -Duonebs scheduled 4 times daily and every 2 hours as needed for SOB and/or wheezing -Incentive Spirometry -Steroids: IV Solu-Medrol discontinued and patient started on Medrol Dosepak -Antibiotics: Rocephin 2 g daily and Zithromax 500 mg daily (day 3) -Blood cultures showing no growth to date. -Continue to encourage and educated patient on importance of smoking cessation. Continue nicotine patch 14 mg daily. Acute kidney injury on stage IIIa chronic kidney disease Macrocytic anemia, possibly acute on chronic secondary to CKD. No previous hemoglobin available for comparison. -Hold olmesartan and continue with gentle IV fluid hydration with 0.9% normal saline at 100 cc/h. -Renal function slightly worsening despite gentle IV fluid hydration and holding of olmesartan. Per RN patient is urinating and not having urinary retention. -Continue bladder scans to monitor for retention and/or postvoid residual. Order placed for renal/bladder ultrasound. Consult placed to nephrology -Consult placed to nephrology, appreciate recommendations. -Hemoglobin stable this morning at 8.4. Will follow closely for improvement/resolution of microcytic anemia and transfuse if indicated for hemoglobin less than 7 and/or symptomatic anemia. Follow-up on iron profile -Monitor renal function closely with repeat a.m. labs. Hypertensive urgency upon arrival with history of hypertension -Amlodipine was increased to 5 mg twice daily and blood pressure improving currently 152/60. Olmesartan held secondary to VAZQUEZ. -Continue to monitor vital signs closely. Type II [id number] diabetes mellitus with hyperglycemia -Hold Januvia, Actos, and glipizide and continue glycemic protocol with NovoLog sliding scale. -Hemoglobin A1c 6.5%. Hyperlipidemia -Continue daily medication regimen with Vytorin 10/80 mg tablet daily. Data and imaging reviewed: -Morning labs reviewed. CBC showing worsening leukocytosis with WBC count of 24.39 and hemoglobin of 8.4. BMP showing hyponatremia with sodium of 131, elevated bicarb of 18.7 and worsening renal function with BUN of 56.0, creatinine 1.8, and GFR of 27. Blood glucose 231. Magnesium 2.5. -Vital signs reviewed. Blood pressure 152/68, heart rate 80, respiratory rate 18, temp 98.2 F, and SpO2 of 98% on room air CODE STATUS: Full code DVT prophylaxis: Lovenox Discussed with: Patient, RN, fleet director, and pulmonary JACKER FEEDER Anticipated discharge date: Pending clinical course Anticipated discharge place: Home Patient was seen independently by Nurse Practitioner. This document was prepared using [employer] dictation software. Please allow for errors in memory care program director while rare they do occur. Cedric Guevara NP rendered care for this patient independently, reviewed the findings and plan as documented in the note above and agree with plan. I did not physically speak with or examine the patient on this date. Objective - Vital Signs Vital signs: Vital Signs Temp 98.4 F 08/30/24 01:11 Pulse 85 08/30/24 01:11 Resp 20 08/30/24 01:11 BP 143/63 08/30/24 01:11 Pulse Ox 93 L 08/30/24 01:11 FiO2 Intake & Output 08/29/24 08/30/24 08/30/24 18:59 06:59 18:59 Intake Total 120 Output Total 300 Balance 120 -300 Intake: Oral 120 Output: Urine 300 Other: Voiding Method Bedside Commode # Voids 3 1 # Bowel Movements 1 - Labs CBC & Chem 7: 08/30/24 05:36 08/30/24 05:36 Labs: Abnormal Lab Results - Last 24 Hours (Table) 08/29/24 08/29/24 08/29/24 Range/Units 11:07 16:23 16:34 WBC 25.8 H (3.8-10.6) k/uL RBC 2.83 L (3.80-5.40) m/uL Hgb 8.8 L (11.4-16.0) gm/dL Hct 27.8 L (34.0-46.0) % Sodium (135-145) mmol/L Carbon Dioxide (21.6-31.8) mmol/L BUN (9.0-27.0) mg/dL Creatinine (0.6-1.5) mg/dL Est GFR (CKD-EPI) (>=60) BUN/Creatinine Ratio (12.00-20.00) Ratio Glucose (70-110) mg/dL POC Glucose (mg/dL) 310 H 261 H (70-110) mg/dL Calcium (8.7-10.3) mg/dL Magnesium (1.5-2.4) mg/dL Iron (50-170) UG/DL TIBC (228-460) UG/DL % Saturation (12.00-45.00) Transferrin (204.0-354.0) mg/dL Total Bilirubin (0.3-1.2) mg/dL AST (13-35) U/L Total Protein (6.2-8.2) g/dL Albumin (3.8-4.9) g/dL Urine Appearance (Clear) Urine Protein (Negative) Urine Glucose (UA) (Negative) Ur Leukocyte Esterase (Negative) Urine WBC (0-5) /hpf Urine Bacteria (None) /hpf Hyaline Casts (0-2) /lpf Urine Mucus (None) /hpf Urine Yeast (Budding) (None) /hpf 08/29/24 08/29/24 08/29/24 Range/Units 16:34 20:07 20:11 WBC (3.8-10.6) k/uL RBC (3.80-5.40) m/uL Hgb (11.4-16.0) gm/dL Hct (34.0-46.0) % Sodium (135-145) mmol/L Carbon Dioxide (21.6-31.8) mmol/L BUN (9.0-27.0) mg/dL Creatinine (0.6-1.5) mg/dL Est GFR (CKD-EPI) (>=60) BUN/Creatinine Ratio (12.00-20.00) Ratio Glucose (70-110) mg/dL POC Glucose (mg/dL) 329 H (70-110) mg/dL Calcium (8.7-10.3) mg/dL Magnesium (1.5-2.4) mg/dL Iron 13 L (50-170) UG/DL TIBC 216 L (228-460) UG/DL % Saturation 6.02 L (12.00-45.00) Transferrin 154.0 L (204.0-354.0) mg/dL Total Bilirubin (0.3-1.2) mg/dL AST (13-35) U/L Total Protein (6.2-8.2) g/dL Albumin (3.8-4.9) g/dL Urine Appearance Cloudy H (Clear) Urine Protein 3+ H (Negative) Urine Glucose (UA) Trace H (Negative) Ur Leukocyte Esterase Small H (Negative) Urine WBC 13 H (0-5) /hpf Urine Bacteria Rare H (None) /hpf Hyaline Casts 3 H (0-2) /lpf Urine Mucus Rare H (None) /hpf Urine Yeast (Budding) Rare H (None) /hpf 08/30/24 08/30/24 Range/Units 05:36 06:21 WBC (3.8-10.6) k/uL RBC (3.80-5.40) m/uL Hgb (11.4-16.0) gm/dL Hct (34.0-46.0) % Sodium 131 L (135-145) mmol/L Carbon Dioxide 18.7 L (21.6-31.8) mmol/L BUN 56.0 H (9.0-27.0) mg/dL Creatinine 1.8 H (0.6-1.5) mg/dL Est GFR (CKD-EPI) 27 L (>=60) BUN/Creatinine Ratio 31.11 H (12.00-20.00) Ratio Glucose 231 H (70-110) mg/dL POC Glucose (mg/dL) 263 H (70-110) mg/dL Calcium 8.6 L (8.7-10.3) mg/dL Magnesium 2.5 H (1.5-2.4) mg/dL Iron (50-170) UG/DL TIBC (228-460) UG/DL % Saturation (12.00-45.00) Transferrin (204.0-354.0) mg/dL Total Bilirubin <0.2 L (0.3-1.2) mg/dL AST 38 H (13-35) U/L Total Protein 5.4 L (6.2-8.2) g/dL Albumin 3.4 L (3.8-4.9) g/dL Urine Appearance (Clear) Urine Protein (Negative) Urine Glucose (UA) (Negative) Ur Leukocyte Esterase (Negative) Urine WBC (0-5) /hpf Urine Bacteria (None) /hpf Hyaline Casts (0-2) /lpf Urine Mucus (None) /hpf Urine Yeast (Budding) (None) /hpf Microbiology - Last 24 Hours (Table) 08/28/24 04:08 Blood Culture - Preliminary Blood
[2024-08-30] MEDS: LACTATED RINGERS 1,000 ML IV SCH (12:41)
--- NOTE | 2024-08-30 13:34 | P.PN ---
Subjective Progress Note Date: 08/30/24 Patient is a 84-year-old female with past medical history significant for hypertension, hyperlipidemia, diabetes mellitus, chronic kidney disease, and current tobacco smoker. Her primary care provider is She presents to the emergency department yesterday afternoon with a chief complaint of gradually worsening shortness of breath over the last 24 to 48 hours. Associated nonproductive cough.Workup in the emergency department including a chest x-ray demonstrating subtle bibasilar airspace opacities, concerning for pneumonia possibly superimposed on chronic fibrotic changes. Viral screen was negative for influenza, RSV, COVID. Labs including CBC with a WBC count of 13.4, hemoglobin 10.2, platelets 192. D-dimer was low at 0.38. CMP: Sodium 132, potassium 4.6, chloride 104, serum bicarb 19, BUN 29, creatinine 1.49, glucose 276. Lactic 1. LFTs unremarkable. Troponins less than 0.012. NT proBNP 2150. Patient currently being evaluated emergency department. She is on 3 L/min chantell al cannula, no respiratory distress. She reports increasing worsening shortness of breath over the last 24 to 48 hours. Associated nonproductive cough as described above. She is a current tobacco smoker, previously 1 pack/day, has weaned down to 5 to 6 cigarettes/day approximately 3 years ago. Denies history of previously diagnosed COPD or asthma. Low-grade fevers, as high as 99.9 F. No known sick contacts, however, did attend a [employer] over the weekend. Also, reports nausea without emesis. No abdominal pain, no diarrhea.Current vital signs include a temperature of 99.5 F, heart rate 88 bpm, blood pressure 136/63 mmHg, nontachypneic on 3 L/min nasal cannula, SpO2 r eading 94% on bedside monitor. The patient is seen today August 29, 2024 in follow-up on the regular medical floor. She is currently standing up near her bed. Awake and alert in no acute distress. Breathing a bit easier today compared to yesterday. Still with a congested cough. She is maintaining good O2 saturations in the 90s on 3 L/min per nasal cannula. Blood culture reveals no growth thus far. White count 21.3. Hemoglobin 8.4. Platelets 183. Sodium 137. Potassium 4.9. Bicarb 21. BUN 44. Creatinine 1.7. Glucose 203. She remains on ceftriaxone and azithromycin. She is continued on DuoNeb inhalations, Pulmicort and Perforomist inhalations, Solu-Medrol. NicoDerm patch in place. Receiving normal saline at 100 mL/h. The patient is seen today August 30, 2024 in follow-up on the regular medical floor. She remains awake and alert in no acute distress. Maintaining good O2 saturations in the 90s on room air. She has been afebrile. Hemodynamically stable. Blood culture revealed no growth. White count 24.3. Hemoglobin 8.4. Platelets 221. Sodium 131. Potassium 5.3. Bicarb 19. BUN 56. Creatinine 1.8. Glucose 231. She remains on ceftriaxone and azithromycin. Continued on bronchodilators Solu-Medrol. Lovenox for DVT prophylaxis. Lactated Ringer's at 80 mL/h. NicoDerm patch in place. Kidney ultrasound reveals no evidence of hydronephrosis. No nephrolithiasis. No masses identified. Objective - Vital Signs Vital signs: Vital Signs Temp 98.2 F 08/30/24 06:56 Pulse 74 08/30/24 09:24 Resp 18 08/30/24 06:56 BP 152/68 08/30/24 06:56 Pulse Ox 98 08/30/24 08:58 FiO2 Intake & Output 08/29/24 08/30/24 08/30/24 18:59 06:59 18:59 Intake Total 120 Output Total 300 Balance 120 -300 Intake: Oral 120 Output: Urine 300 Other: Voiding Method Bedside Commode Bedside Commode # Voids 3 1 # Bowel Movements 1 - Exam GENERAL EXAM: Alert, pleasant 84-year-old female, up in a chair, on 3 L/min nasal cannula,, comfortable in no apparent distress. HEAD: Normocephalic and atraumatic EYES: Normal reaction of pupils, equal size. NOSE: Clear with pink turbinates. THROAT: No erythema or exudates. NECK: No masses, no JVD. CHEST: No chest wall deformity. LUNGS: Equal air entry with minimal bibasilar crackles. Minimal bilateral posterior expiratory wheezing. No conversational dyspnea. CVS: S1 and S2 normal with no audible murmur, regular rhythm. No extra heart sounds ABDOMEN: No hepatosplenomegaly, active bowel sounds, no guarding or rigidity. SPINE: No scoliosis or deformity SKIN: No rashes CENTRAL NERVOUS SYSTEM: No focal deficits, tone is normal in all 4 extremities. EXTREMITIES: There is no peripheral edema, clubbing, or cyanosis. Peripheral pulses are intact. - Labs CBC & Chem 7: 08/30/24 05:36 08/30/24 05:36 Labs: Abnormal Lab Results - Last 24 Hours (Table) 08/29/24 08/29/24 08/29/24 Range/Units 16:23 16:34 16:34 WBC 25.8 H (3.8-10.6) k/uL RBC 2.83 L (3.80-5.40) m/uL Hgb 8.8 L (11.4-16.0) gm/dL Hct 27.8 L (34.0-46.0) % MCV (80.0-97.0) FL MCHC (32.0-37.0) g/dL Sodium (135-145) mmol/L Carbon Dioxide (21.6-31.8) mmol/L BUN (9.0-27.0) mg/dL Creatinine (0.6-1.5) mg/dL Est GFR (CKD-EPI) (>=60) BUN/Creatinine Ratio (12.00-20.00) Ratio Glucose (70-110) mg/dL POC Glucose (mg/dL) 261 H (70-110) mg/dL Calcium (8.7-10.3) mg/dL Magnesium (1.5-2.4) mg/dL Iron 13 L (50-170) UG/DL TIBC 216 L (228-460) UG/DL % Saturation 6.02 L (12.00-45.00) Transferrin 154.0 L (204.0-354.0) mg/dL Total Bilirubin (0.3-1.2) mg/dL AST (13-35) U/L Total Protein (6.2-8.2) g/dL Albumin (3.8-4.9) g/dL Urine Appearance (Clear) Urine Protein (Negative) Urine Glucose (UA) (Negative) Ur Leukocyte Esterase (Negative) Urine WBC (0-5) /hpf Urine Bacteria (None) /hpf Hyaline Casts (0-2) /lpf Urine Mucus (None) /hpf Urine Yeast (Budding) (None) /hpf 08/29/24 08/29/24 08/30/24 Range/Units 20:07 20:11 05:36 WBC 24.39 H (3.8-10.6) k/uL RBC 2.67 L (3.80-5.40) m/uL Hgb 8.4 L (11.4-16.0) gm/dL Hct 26.6 L (34.0-46.0) % MCV 99.6 H (80.0-97.0) FL MCHC 31.6 L (32.0-37.0) g/dL Sodium (135-145) mmol/L Carbon Dioxide (21.6-31.8) mmol/L BUN (9.0-27.0) mg/dL Creatinine (0.6-1.5) mg/dL Est GFR (CKD-EPI) (>=60) BUN/Creatinine Ratio (12.00-20.00) Ratio Glucose (70-110) mg/dL POC Glucose (mg/dL) 329 H (70-110) mg/dL Calcium (8.7-10.3) mg/dL Magnesium (1.5-2.4) mg/dL Iron (50-170) UG/DL TIBC (228-460) UG/DL % Saturation (12.00-45.00) Transferrin (204.0-354.0) mg/dL Total Bilirubin (0.3-1.2) mg/dL AST (13-35) U/L Total Protein (6.2-8.2) g/dL Albumin (3.8-4.9) g/dL Urine Appearance Cloudy H (Clear) Urine Protein 3+ H (Negative) Urine Glucose (UA) Trace H (Negative) Ur Leukocyte Esterase Small H (Negative) Urine WBC 13 H (0-5) /hpf Urine Bacteria Rare H (None) /hpf Hyaline Casts 3 H (0-2) /lpf Urine Mucus Rare H (None) /hpf Urine Yeast (Budding) Rare H (None) /hpf 08/30/24 08/30/24 08/30/24 Range/Units 05:36 06:21 11:54 WBC (3.8-10.6) k/uL RBC (3.80-5.40) m/uL Hgb (11.4-16.0) gm/dL Hct (34.0-46.0) % MCV (80.0-97.0) FL MCHC (32.0-37.0) g/dL Sodium 131 L (135-145) mmol/L Carbon Dioxide 18.7 L (21.6-31.8) mmol/L BUN 56.0 H (9.0-27.0) mg/dL Creatinine 1.8 H (0.6-1.5) mg/dL Est GFR (CKD-EPI) 27 L (>=60) BUN/Creatinine Ratio 31.11 H (12.00-20.00) Ratio Glucose 231 H (70-110) mg/dL POC Glucose (mg/dL) 263 H 343 H (70-110) mg/dL Calcium 8.6 L (8.7-10.3) mg/dL Magnesium 2.5 H (1.5-2.4) mg/dL Iron (50-170) UG/DL TIBC (228-460) UG/DL % Saturation (12.00-45.00) Transferrin (204.0-354.0) mg/dL Total Bilirubin <0.2 L (0.3-1.2) mg/dL AST 38 H (13-35) U/L Total Protein 5.4 L (6.2-8.2) g/dL Albumin 3.4 L (3.8-4.9) g/dL Urine Appearance (Clear) Urine Protein (Negative) Urine Glucose (UA) (Negative) Ur Leukocyte Esterase (Negative) Urine WBC (0-5) /hpf Urine Bacteria (None) /hpf Hyaline Casts (0-2) /lpf Urine Mucus (None) /hpf Urine Yeast (Budding) (None) /hpf Microbiology - Last 24 Hours (Table) 08/28/24 04:08 Blood Culture - Preliminary Blood Assessment and Plan Assessment: Acute hypoxic respiratory failure, on 3 L/min nasal cannula, chest x-ray demonstrating subtle bibasilar airspace opacities, concerning for pneumonia possibly superimposed on chronic fibrotic changes. Viral screen negative for influenza, RSV, COVID. Suspect underlying COPD, in exacerbation Acute leukocytosis Acute on chronic kidney disease Anemia Diabetes mellitus type 2 Hypertension History of hyperlipidemia Current ongoing tobacco dependence Plan: The patient was seen and evaluated Labs and medications reviewed Kidney ultrasound reviewed Nephrology consulted Added lactated Ringer's at 80 mL/h Stable on 3 L nasal cannula Continue DuoNeb inhalations Discontinue Pulmicort and Perforomist inhalations Add Symbicort Discontinue IV Solu-Medrol Initiate a Medrol Dosepak Again educated regarding smoking cessation NicoDerm patch in place We will continue to follow I have personally seen and examined the patient, performed the documentation and the assessment and plan as written. Number of minutes spent on the visit: 10 Dictation was produced using [employer] dictation software. Please excuse any grammatical, word or spelling errors.
[2024-08-30] MEDS: SODIUM FERRIC GLUCONAT-SUCROSE 125 MG in SODIUM CHLORIDE 0.9% 100 ML IVPB SCH (14:04)
[2024-08-30 17:01] LABS: Glucose,Whole Blood 201 mg/dL (70-110)
[2024-08-30 22:29] LABS: Glucose,Whole Blood 212 mg/dL (70-110)
[2024-08-31 06:40] LABS: Glucose,Whole Blood 140 mg/dL (70-110)
[2024-08-31 08:21] VITALS: BP 165/66; PULSE 80; TEMP 98.2
[2024-08-31] MEDS: methylPREDNISolone 4 MG TAB TAPER PO SCH (09:46)
[2024-08-31 10:02] LABS: HCT 26.8 % (34.0-46.0); HGB 8.5 gm/dL (11.4-16.0); Hypochromasia Moderate; MCH 31.2 pg (25.0-35.0); MCHC 31.8 g/dL (31.0-37.0); MCV 98.1 fL (80.0-100.0); Mean Platelet Volume 9.4; Platelet Count 203 k/uL (150-450); RBC 2.73 m/uL (3.80-5.40); RDW 13.9 % (11.5-15.5); WBC 17.1 k/uL (3.8-10.6)
[2024-08-31 10:12] LABS: African American GFR (CKD) 32 (>60 ml/min/1.73 sqM); Anion Gap 7 mmol/L; Blood Urea Nitrogen 54 mg/dL (7-17); Calcium 8.3 mg/dL (8.4-10.2); Carbon Dioxide 19 mmol/L (22-30); Chloride 103 mmol/L (98-107); Glucose 243 mg/dL (74-99); Magnesium 2.3 mg/dL (1.6-2.3); Non-African American GFR(CKD) 28 (>60 ml/min/1.73 sqM); Potassium 4.6 mmol/L (3.5-5.1); Sodium 129 mmol/L (137-145)
[2024-08-31 11:22] LABS: Glucose,Whole Blood 320 mg/dL (70-110)
--- NOTE | 2024-08-31 14:43 | P.PN ---
Subjective Progress Note Date: 08/31/24 Patient is a 84-year-old female with past medical history significant for hypertension, hyperlipidemia, diabetes mellitus, chronic kidney disease, and current tobacco smoker. Her primary care provider is She presents to the emergency department yesterday afternoon with a chief complaint of gradually worsening shortness of breath over the last 24 to 48 hours. Associated nonproductive cough.Workup in the emergency department including a chest x-ray demonstrating subtle bibasilar airspace opacities, concerning for pneumonia possibly superimposed on chronic fibrotic changes. Viral screen was negative for influenza, RSV, COVID. Labs including CBC with a WBC count of 13.4, hemoglobin 10.2, platelets 192. D-dimer was low at 0.38. CMP: Sodium 132, potassium 4.6, chloride 104, serum bicarb 19, BUN 29, creatinine 1.49, glucose 276. Lactic 1. LFTs unremarkable. Troponins less than 0.012. NT proBNP 2150. Patient currently being evaluated emergency department. She is on 3 L/min chantell al cannula, no respiratory distress. She reports increasing worsening shortness of breath over the last 24 to 48 hours. Associated nonproductive cough as described above. She is a current tobacco smoker, previously 1 pack/day, has weaned down to 5 to 6 cigarettes/day approximately 3 years ago. Denies history of previously diagnosed COPD or asthma. Low-grade fevers, as high as 99.9 F. No known sick contacts, however, did attend a [employer] party over the weekend. Also, reports nausea without emesis. No abdominal pain, no diarrhea.Current vital signs include a temperature of 99.5 F, heart rate 88 bpm, blood pressure 136/63 mmHg, nontachypneic on 3 L/min nasal cannula, SpO2 r eading 94% on bedside monitor. The patient is seen today August 29, 2024 in follow-up on the regular medical floor. She is currently standing up near her bed. Awake and alert in no acute distress. Breathing a bit easier today compared to yesterday. Still with a congested cough. She is maintaining good O2 saturations in the 90s on 3 L/min per nasal cannula. Blood culture reveals no growth thus far. White count 21.3. Hemoglobin 8.4. Platelets 183. Sodium 137. Potassium 4.9. Bicarb 21. BUN 44. Creatinine 1.7. Glucose 203. She remains on ceftriaxone and azithromycin. She is continued on DuoNeb inhalations, Pulmicort and Perforomist inhalations, Solu-Medrol. NicoDerm patch in place. Receiving normal saline at 100 mL/h. The patient is seen today August 30, 2024 in follow-up on the regular medical floor. She remains awake and alert in no acute distress. Maintaining good O2 saturations in the 90s on room air. She has been afebrile. Hemodynamically stable. Blood culture revealed no growth. White count 24.3. Hemoglobin 8.4. Platelets 221. Sodium 131. Potassium 5.3. Bicarb 19. BUN 56. Creatinine 1.8. Glucose 231. She remains on ceftriaxone and azithromycin. Continued on bronchodilators Solu-Medrol. Lovenox for DVT prophylaxis. Lactated Ringer's at 80 mL/h. NicoDerm patch in place. Kidney ultrasound reveals no evidence of hydronephrosis. No nephrolithiasis. No masses identified. The patient is seen today August 31, 2024 in follow-up on the regular medical floor. She is currently resting comfortably in bed. Awake and alert in no acute distress. She denies any worsening shortness of breath, cough or congestion. She is maintaining good O2 saturations in the 90s on room air. White count 17.1. Hemoglobin 8.5. Platelets 203. Sodium 129. Potassium 4.6. Bicarb 19. BUN 54. Creatinine 1.69. Glucose 243. She remains on ceftriaxone. Continued on a Medrol Dosepak. NicoDerm patch in place. Receiving iron supplements. Lovenox for DVT prophylaxis. Objective - Vital Signs Vital signs: Vital Signs Temp 98.2 F 08/31/24 08:00 Pulse 80 08/31/24 08:00 Resp 18 08/31/24 09:50 BP 165/66 08/31/24 08:00 Pulse Ox 94 L 08/31/24 08:00 FiO2 Intake & Output 08/30/24 08/31/24 08/31/24 18:59 06:59 18:59 Output Total 500 Balance -500 Output: Urine 500 Straight 500 Other: Voiding Method Bedside Commode Bedside Commode Bedside Commode # Voids 4 1 - Exam GENERAL EXAM: Alert, 84-year-old female, sitting in bed, on room air oxygen, comfortable in no apparent distress. HEAD: Normocephalic and atraumatic EYES: Normal reaction of pupils, equal size. NOSE: Clear with pink turbinates. THROAT: No erythema or exudates. NECK: No masses, no JVD. CHEST: No chest wall deformity. LUNGS: Equal air entry with minimal bibasilar crackles. Minimal bilateral posterior expiratory wheezing. No conversational dyspnea. CVS: S1 and S2 normal with no audible murmur, regular rhythm. No extra heart sounds ABDOMEN: No hepatosplenomegaly, active bowel sounds, no guarding or rigidity. SPINE: No scoliosis or deformity SKIN: No rashes CENTRAL NERVOUS SYSTEM: No focal deficits, tone is normal in all 4 extremities. EXTREMITIES: There is no peripheral edema, clubbing, or cyanosis. Peripheral pulses are intact. - Labs CBC & Chem 7: 08/31/24 09:47 08/31/24 09:47 Labs: Abnormal Lab Results - Last 24 Hours (Table) 08/30/24 08/30/24 08/31/24 Range/Units 17:00 22:27 06:38 WBC (3.8-10.6) k/uL RBC (3.80-5.40) m/uL Hgb (11.4-16.0) gm/dL Hct (34.0-46.0) % Sodium (137-145) mmol/L Carbon Dioxide (22-30) mmol/L BUN (7-17) mg/dL Creatinine (0.52-1.04) mg/dL Glucose (74-99) mg/dL POC Glucose (mg/dL) 201 H 212 H 140 H (70-110) mg/dL Calcium (8.4-10.2) mg/dL 08/31/24 08/31/24 08/31/24 Range/Units 09:47 09:47 11:20 WBC 17.1 H (3.8-10.6) k/uL RBC 2.73 L (3.80-5.40) m/uL Hgb 8.5 L (11.4-16.0) gm/dL Hct 26.8 L (34.0-46.0) % Sodium 129 L (137-145) mmol/L Carbon Dioxide 19 L (22-30) mmol/L BUN 54 H (7-17) mg/dL Creatinine 1.69 H (0.52-1.04) mg/dL Glucose 243 H (74-99) mg/dL POC Glucose (mg/dL) 320 H (70-110) mg/dL Calcium 8.3 L (8.4-10.2) mg/dL Microbiology - Last 24 Hours (Table) 08/28/24 04:08 Blood Culture - Preliminary Blood Assessment and Plan Assessment: Acute hypoxic respiratory failure secondary to subtle bibasilar airspace opacities, concerning for pneumonia possibly superimposed on chronic fibrotic changes. Recovered and on room air Suspect underlying COPD, in exacerbation Acute leukocytosis Acute on chronic kidney disease Anemia Diabetes mellitus type 2 Hypertension History of hyperlipidemia Current ongoing tobacco dependence Plan: The patient was seen and evaluated Labs and medications reviewed Continue DuoNeb inhalations Continue Symbicort Continue Medrol Dosepak Again educated regarding smoking cessation NicoDerm patch in place Home once cleared by nephrology Follow-up in our office in 1 week I have personally seen and examined the patient, performed the documentation and the assessment and plan as written. Number of minutes spent on the visit: 10 Dictation was produced using [employer] dictation software. Please excuse any grammatical, word or spelling errors.
[2024-08-31 16:12] LABS: Glucose,Whole Blood 180 mg/dL (70-110)
--- NOTE | 2024-08-31 16:23 | P.DS ---
Providers Date of admission: 08/28/24 06:34 Expected date of discharge: 08/31/24 Attending physician: Khurram Scott MD Consults: 08/28/24 06:44 Consult Physician Routine Consulting Provider: Steve Wright Consult Reason/Comments: COPD Do you want consulting provider notified?: Yes, Notify in am 08/30/24 08:56 Consult Physician Routine Consulting Provider: Angelica Alonzo Consult Reason/Comments: VAZQUEZ Do you want consulting provider notified?: Yes Primary care physician: [facility] Course: Discharge Diagnosis: Acute respiratory failure with hypoxia. Resolved. Patient maintaining oxygen saturations at 94% on room air and with exertion. Community-acquired pneumonia. Received 3-day course of Zithromax and Rocephin and discharged home on an additional 2-day course of doxycycline 100 mg twice daily. Suspected COPD exacerbation. Patient discharged home with Ventolin inhaler, Medrol Dosepak, and Symbicort. Patient to follow-up outpatient with newspaper editor managing in 1 week. Leukocytosis, improving. Nicotine dependence. Recommend smoking cessation. Patient discharged home with nicotine patch. Acute kidney injury on stage IIIa chronic kidney disease. Renal function improving. Patient cleared from nephrology perspective for discharge. Recommending continuation of holding olmesartan and repeat BMP in 3 days and fo llow-up outpatient in her office in 1 week. Macrocytic anemia, possibly acute on chronic secondary to CKD. No previous hemoglobin available for comparison. Hypertensive urgency upon arrival with history of hypertension Amlodipine was increased to 5 mg twice daily and blood pressure improving currently 152/60. Olmesartan held secondary to VAZQUEZ. Type II [id number] diabetes mellitus with hyperglycemia. Resume Januvia, Actos, and glipizide. Hemoglobin A1c 6.5%. Hyperlipidemia. Continue daily medication regimen with Vytorin 10/80 mg tablet daily. Hospital Course: Patient is a very pleasant 84-year-old female with a past medical history of hypertension, hyperlipidemia, [id number] diabetes mellitus, CKD stage IIIa, and nicotine dependence, . She presented to the emergency department with a chief complaint of shortness of breath. Patient reports progressively worsening shortness of breath x 2 days accompanied by nonproductive cough. She denies fever, chills, diaphoresis, chest pain, palpitations, abdominal pain, nausea, vomiting, or experiencing any numbness/tingling/weakness/swelling in her extremities. Upon arrival to our facility, patient underwent evaluation in the emergency department. Signs upon arrival show blood pressure 206/78, heart rate 94, respiratory rate 22, temp 99.9 F, and SpO2 of 97% on 2 L. EKG was completed showing normal sinus rhythm with 93 bpm with T wave inversion in lateral lead aVL and no significant ST abnormalities upon personal review and interpretation. Chest x-ray completed showing bibasilar opacities concerning for pneumonia versus chronic fibrotic changes. Labs completed and reviewed. CBC showing leukocytosis with WBC count of 13.4 and macrocytic anemia with hemoglobin of 10.2 and MCV of 100.3. Coagulation profile normal findings. D- dimer negative at 0.38. BMP showing hyponatremia with sodium of 132, hypocarbia with bicarb of 19, and an acute kidney injury with BUN of 29, creatinine of 1.49 with baseline creatinine of 1.1. Blood glucose was elevated at 276. Lactic acid with normal at 1.0. Magnesium 1.9. Liver profile showing elevated AST of 42 and ALT of 49 otherwise normal findings. Troponin was negative at less than 0.012 and proBNP was 2150. Influenza A, influenza B, RSV, and COVID PCR's were negative. Patient admitted under services with consultation to pulmonology and nephrology. Physical exam: Vital signs reviewed and stable. General: Nontoxic, no distress and appears stated age. Derm: Skin warm and dry, normal coloration for ethnicity. Head: Atraumatic, normocephalic and symmetric. Eyes: EOM's intact, no lid lag, and anicteric sclera Mouth: no lip lesions, mucus membranes moist Cardiovascular: regular rate and rhythm with normal S1S2, no murmur, positive posterior tibial pulses bilaterally, and cap refill < 2 seconds. Lungs: Respirations even, regular, and unlabored on 3 L O2 via nasal cannula. Lungs much improved air movement, with soft expiratory wheezes noted but no rhonchi, rales, or crackles. Abdominal: soft, nontender to palpation, no guarding, no appreciable organomegaly Ext: ROM intact. No gross muscle atrophy, no edema, no contractures Neuro: Speech clear, face symmetrical and CN II-XII grossly intact with no noted focal neuro deficits Psych: Alert and oriented to person, place, time, and situation. Appropriate and pleasant affect. A total of 37 minutes of time were spent preparing this complex discharge summary. Pt was discharged on 08/31/2024 at 4:22 PM. Patient was seen independently by Nurse Practitioner. This document was prepared using ViVi[employer] dictation software. Please allow for errors in electrical maintenance man while rare they do occur. Cedric Guevara CHEF PASSENGER VESSEL rendered care for this patient independently, reviewed the findings and plan as documented in the note above. I did not physically speak with or examine the patient on this date. Patient Condition at Discharge: Stable Plan - Discharge Summary New Discharge Prescriptions: New Ferrous Sulfate [Iron (65 MG Elemental)] 325 mg PO DAILY 30 Days #30 tab methylPREDNISolone Dose Pack [Medrol Dose Pack] 4 mg PO DIRECTED #21 tab Albuterol Inhaler [Ventolin Hfa Inhaler] 2 puff INHALATION Q6H PRN #1 inh PRN Reason: Shortness Of Breath Or Wheezing Nicotine 14Mg/24Hr Patch [Habitrol] 1 patch TRANSDERM DAILY 30 Days #30 patch Budesonide-Formot 160-4.5 Mcg [Symbicort 160-4.5 Mcg Inhaler] 2 puff INHALATION BID 30 Days #1 inh Doxycycline [Vibramycin] 100 mg PO BID 2 Days #4 capsule Continue sitaGLIPtin [Januvia] 100 mg PO DAILY Ezetimibe/Simvastatin [Vytorin 10-80 mg Tablet] 1 tab PO DAILY HYDROcodone/APAP 7.5-325MG [[place] 7.5-325] 1 tab PO TID PRN PRN Reason: Pain Cetirizine HCl [Zyrtec] 10 mg PO DAILY Vit C/E/Zn/Coppr/Lutein/Zeaxan [Preservision Areds 2 Softgel] 1 cap PO BID Cholecalciferol [Vitamin D3 (25 Mcg = 1000 Iu)] 50 mcg PO DAILY Pioglitazone [Actos] 30 mg PO DAILY amLODIPine [Norvasc] 2.5 mg PO BID glipiZIDE XL [Glucotrol XL] 10 mg PO DAILY Discontinued Olmesartan Medoxomil [Benicar] 30 mg PO DAILY Discharge Medication List Ezetimibe/Simvastatin [Vytorin 10-80 mg Tablet] 1 tab PO DAILY 02/20/14 [History] sitaGLIPtin [Januvia] 100 mg PO DAILY 02/20/14 [History] HYDROcodone/APAP 7.5-325MG [[place] 7.5-325] 1 tab PO TID PRN 04/03/19 [History] Cetirizine HCl [Zyrtec] 10 mg PO DAILY 08/28/24 [History] Cholecalciferol [Vitamin D3 (25 Mcg = 1000 Iu)] 50 mcg PO DAILY 08/28/24 [History] Pioglitazone [Actos] 30 mg PO DAILY 08/28/24 [History] Vit C/E/Zn/Coppr/Lutein/Zeaxan [Preservision Areds 2 Softgel] 1 cap PO BID 08/28/24 [History] amLODIPine [Norvasc] 2.5 mg PO BID 08/28/24 [History] glipiZIDE XL [Glucotrol XL] 10 mg PO DAILY 08/28/24 [History] Albuterol Inhaler [Ventolin Hfa Inhaler] 2 puff INHALATION Q6H PRN #1 inh 08/31/24 [Rx] Budesonide-Formot 160-4.5 Mcg [Symbicort 160-4.5 Mcg Inhaler] 2 puff INHALATION BID 30 Days #1 inh 08/31/24 [Rx] Doxycycline [Vibramycin] 100 mg PO BID 2 Days #4 capsule 08/31/24 [Rx] Ferrous Sulfate [Iron (65 MG Elemental)] 325 mg PO DAILY 30 Days #30 tab 08/31/24 [Rx] Nicotine 14Mg/24Hr Patch [Habitrol] 1 patch TRANSDERM DAILY 30 Days #30 patch 08/31/24 [Rx] methylPREDNISolone Dose Pack [Medrol Dose Pack] 4 mg PO DIRECTED #21 tab 08/31/24 [Rx] Follow up Appointment(s)/Referral(s): Steve Wright MD [STAFF PHYSICIAN] - 1 Week Angelica Alonzo MD [STAFF PHYSICIAN] - 1 Week Sedrick Diego MD [Primary Care Provider] - 1-2 days Ambulatory/Diagnostic Orders: Basic Metabolic Panel [LAB.AMB] Time Frame: 3 Days, Location: None Selected Patient Instructions/Handouts: Acute Kidney Injury (DC), COPD (Chronic Obstructive Pulmonary Disease) (DC), Community Acquired Pneumonia (DC), Chronic Lung Disease and Infection Prevention (DC) Activity/Diet/Wound Care/Special Instructions: Mammogram scheduled for September 10 at 10:30am. Please call if you need to reschedule: #[phone]. Activity: As tolerated. Take breaks as needed. Diet: Heart healthy and carb consistent diet. Special Instructions: Take all of your medications as directed and remember to keep all of your doctor's appointments and follow-up as needed. Strongly recommend smoking cessation Thank you for allowing us to participate in your care, it was truly a pleasure having you for our patient!!! Discharge Disposition: HOME SELF-CARE
[2024-08-31] MEDS ORDERED: SYMBICORT 160-4.5 MCG INHALER INHALATION SCH (20:00)
--- NOTE | 2024-09-01 12:24 | P.PN ---
Subjective Patient is seen for follow-up for acute kidney injury. Overall feeling better and wants to go home. Labs are pending from today. Objective - Vital Signs Vital signs: Vital Signs Temp 98.2 F 08/31/24 08:00 Pulse 80 08/31/24 08:00 Resp 18 08/31/24 09:50 BP 165/66 08/31/24 08:00 Pulse Ox 94 L 08/31/24 08:00 FiO2 Intake & Output 08/31/24 09/01/24 09/01/24 18:59 06:59 18:59 Other: Voiding Method Bedside Commode - Exam Patient is awake, comfortable, no acute distress Examination of the heart S1 and S2 Examination of the lungs bilateral breath sounds are heard Abdomen is soft nontender Examination of lower extremity shows no significant edema TAPE CUTTING MACHINE OPERATOR exam grossly intact - Labs CBC & Chem 7: 08/31/24 09:47 08/31/24 09:47 Labs: Abnormal Lab Results - Last 24 Hours (Table) 08/31/24 Range/Units 16:11 POC Glucose (mg/dL) 180 H (70-110) mg/dL Microbiology - Last 24 Hours (Table) 08/28/24 04:08 Blood Culture - Preliminary Blood Assessment and Plan Assessment: 1. Acute kidney injury, ATN, nonoliguric rule out urine retention. Ultrasound shows no evidence of hydronephrosis. UA shows 3+ protein no blood hyaline casts noted. Currently off of Benicar and maintained on IV fluids. 2. Community-acquired pneumonia 3. Acute hypoxic respiratory failure secondary to pneumonia 4. Hypertension with uncontrolled blood pressure on admission, currently improved. Benicar on hold 5. Anemia with significant iron deficiency noted with iron saturation at 6% 6. Nongap metabolic acidosis secondary to acute kidney injury Plan: Okay to discharge today if labs are better Continue to hold NADER inhibitors for now
== END 2024-08-31 17:32 | disposition home or self-care (01) | DRG 193 ==
LOC: EC 02:59 → 4SSUR 06:33 → OBSVTOIN 06:34 → 4SSUR 14:29
PROVIDERS: ADMIT Internal Medicine; ATTEND Internal Medicine
DX: J18.9 Pneumonia, unspecified organism (principal); J96.01 Acute respiratory failure with hypoxia; N17.0 Acute kidney failure with tubular necrosis; E87.20 Acidosis, unspecified; I16.0 Hypertensive urgency; E11.22 Type 2 diabetes mellitus with diabetic chronic kidney disease; D50.9 Iron deficiency anemia, unspecified; J44.1 Chronic obstructive pulmonary disease with (acute) exacerbation; N18.31 Chronic kidney disease, stage 3a; I12.9 Hypertensive chronic kidney disease with stage 1 through stage 4 chronic kidney disease, or unspecified chronic kidney disease; J44.0 Chronic obstructive pulmonary disease with (acute) lower respiratory infection; N17.9 Acute kidney failure, unspecified; E11.65 Type 2 diabetes mellitus with hyperglycemia; E78.5 Hyperlipidemia, unspecified; F17.210 Nicotine dependence, cigarettes, uncomplicated; D53.9 Nutritional anemia, unspecified; Z79.84 Long term (current) use of oral hypoglycemic drugs; Z79.899 Other long term (current) drug therapy; Z80.3 Family history of malignant neoplasm of breast; Z98.1 Arthrodesis status; Z90.49 Acquired absence of other specified parts of digestive tract
CPT/HCPCS: 36415; 71045; 76770; 80048; 80053; 81001; 83036; 83540; 83550; 83605; 83735; 83880; 84145; 84484; 85025; 85027; 85379; 85610; 85730; 87040; 87636; 93005; 94640; 94644; 94760; 96361; 96365; 96367; 96368; 96372; 96375; 99291

== ENCOUNTER → 2024-09-10 | Outpatient (CLI) | payer MEDICARE, OTHER ==
--- NOTE | 2024-09-13 13:46 | MM ---
Reason for Exam: Additional evaluation requested from prior study. Last screening mammogram was performed 6 month(s) ago. Patient History: Menarche at age 11. First Full-Term at age 18. Postmenopausal. Sister had breast cancer, age 68. Risk Values: Kathleen 5 year model risk: 2.9%. NCI Lifetime model risk: 3.2%. Prior Study Comparison: 12/15/2017 Bilateral Screening Mammogram, [facility]. 12/12/2018 Bilateral Screening Mammogram, [facility]. 01/01/2020 Bilateral Screening Mammogram, [facility]. 01/15/2021 Bilateral Screening Mammogram, [facility]. 01/24/2023 Bilateral Screening Mammogram, [facility]. 03/01/2024 Bilateral MG 3D screening mammo w/cad, [facility]. 03/07/2024 Left MG 3D work up w/cad LT, [facility]. Tissue Density: Left: There are scattered areas of fibroglandular density. Findings: Analyzed By CAD. Stable benign calcifications seen without suspicious cluster noted. No evidence for mass or distortion. No skin thickening. Overall Assessment: Benign, BI-RAD 2 Management: Screening Mammogram of both breasts in 6 months. . Results were given to the patient verbally at the time of exam. Patient should continue monthly self-breast exams. A clinical breast exam by your physician is recommended on an annual basis. This exam should not preclude additional follow-up of suspicious palpable abnormalities. Note on Kathleen scores and lifetime risk: 1. A Kathleen score greater than 3% is considered moderate risk. If this is the case, consider specialist referral to assess eligibility for a risk reducing agent. 2. If overall lifetime risk for the development of breast cancer is 20% or higher, the patient may qualify for future screening with alternating mammogram and breast MRI. [facility], , 09/10/2024 10:58 AM. Electronically signed and approved by: Jay Jacobsen M.D. Radiologis
== END | disposition home or self-care (01) ==
LOC: RADMAMWWP 10:22
PROVIDERS: ATTEND Family Medicine
DX: R92.8 Other abnormal and inconclusive findings on diagnostic imaging of breast (principal); R92.322 Mammographic fibroglandular density, left breast; R92.1 Mammographic calcification found on diagnostic imaging of breast; Z78.0 Asymptomatic menopausal state; Z80.3 Family history of malignant neoplasm of breast
CPT/HCPCS: 77065; G0279; 77061

== ENCOUNTER → 2024-09-13 | Outpatient (CLI) | payer MEDICARE, OTHER ==
[2024-09-13 14:26] LABS: African American GFR (CKD) 49 (>60 ml/min/1.73 sqM); Blood Urea Nitrogen 24 mg/dL (7-17); Non-African American GFR(CKD) 43 (>60 ml/min/1.73 sqM)
--- NOTE | 2024-09-13 15:17 | CT ---
EXAMINATION TYPE: CT angio neck DATE OF EXAM: 09/13/2024 COMPARISON: None CLINICAL INDICATION: Female, 84 years old with history of I65.29 CAROTID STENOSIS; PHH, Carotid steno sis. TECHNIQUE: CTA scan of the head and neck is performed with IV Contrast, patient injected with 65ml m L of Isovue 370, axial images are obtained, coronal and sagittal reformatted images are reviewed. 3D reconstructed images are created on an independent workstation and reviewed. CT DLP: 303.[address] CTDI: mGy Automated exposure control for dose reduction was used. NASCET criteria was used in interpretation of this exam? FINDINGS: The brachiocephalic origins are widely patent and no significant stenosis. There is moderate eccentric calcified plaques in the carotid bifurcations bilaterally. There is mild less than 50% stenosis of the distal right common carotid artery and proximal right internal carotid artery. There is an approximate 70% stenosis of the proximal left internal carotid artery. The vertebral asaf shiraz are widely patent without significant calcification or stenosis. . IMPRESSION:. 1. Approximate 70%/severe stenosis of the proximal left internal carotid artery. 2. Mild less than 50% stenosis of the right internal carotid artery. NASCET criteria was used in interpretation of this exam? [facility], , 09/13/2024 3:14 PM
== END | disposition home or self-care (01) ==
LOC: RADCTMAIN 13:47
PROVIDERS: ATTEND Internal Medicine Clinical Cardiac Electrophysiology
DX: I65.23 Occlusion and stenosis of bilateral carotid arteries (principal)
CPT/HCPCS: 82565; 84520; 70498; 36415; Q9967

== ENCOUNTER → 2024-09-27 | Outpatient (CLI) | payer MEDICARE, OTHER ==
--- NOTE | 2024-09-27 10:47 | XR ---
EXAMINATION TYPE: XR chest 2V DATE OF EXAM: 09/27/2024 10:36 AM COMPARISON: Chest radiographs from 08/30/2024 TECHNIQUE: XR chest 2V Frontal and lateral views of the chest. CLINICAL INDICATION:Female, 84 years old with history of M79.89 MIXED HYPERLIPIDEMIA R06.00 DYSPNEA, UNSPECIFIED; FINDINGS: Lungs/Pleura: Blunting of both costophrenic angles. Bibasilar subsegmental atelectasis. No pneumothor ax. Pulmonary vascularity: Unremarkable. Heart/mediastinum: Cardiomediastinal silhouette is unremarkable. Atherosclerotic calcifications are seen in the aorta. Musculoskeletal: Multiple level degenerative disc disease changes seen throughout the spine. Cervical fusion hardware. High riding right shoulder suggesting chronic rotator cuff tear. IMPRESSION: Small bilateral pleural effusions with associated atelectasis. [facility], , 09/27/2024 10:44 AM
[2024-09-27 15:31] LABS: Basophils # (A) 0.04 X 10*3/uL (0.00-0.10); Basophils % (A) 0.6 %; Eosinophils # (A) 0.22 X 10*3/uL (0.04-0.35); Eosinophils % (A) 3.5 %; HGB 8.6 g/dL (12.0-15.0); Lymphocytes # (A) 0.97 X 10*3/uL (0.90-5.00); Lymphocytes % (A) 15.5 %; MCH 30.8 pg (27.0-32.0); MCHC 30.7 g/dL (32.0-37.0); MCV 100.4 FL (80.0-97.0); Mean Platelet Volume 10.1 FL (9.5-12.2); Monocytes # (A) 0.55 X 10*3/uL (0.20-1.00); Monocytes % (A) 8.8 %; NRBC Per 100 WBC 0 X 10*3/uL (0.00-0.01); Neutrophils # (A) 4.46 X 10*3/uL (1.80-7.70); Neutrophils % (A) 71.1 %; Platelet Count 307 X 10*3/uL (140-440); RBC 2.79 X 10*6/uL (4.10-5.20); RDW 14.6 % (11.5-14.5); WBC 6.27 X 10*3/uL (4.50-10.00)
[2024-09-27 15:46] LABS: ALT 17 U/L (8-44); AST 21 U/L (13-35); Albumin 3.5 g/dL (3.8-4.9); Albumin/Globulin Ratio 1.67 Ratio (1.60-3.17); Alkaline Phosphatase 58 U/L (41-126); BUN/Creat Ratio 17.83 Ratio (12.00-20.00); Blood Urea Nitrogen 21.4 mg/dL (9.0-27.0); Calcium 8.6 mg/dL (8.7-10.3); Carbon Dioxide 22.3 mmol/L (21.6-31.8); Chloride 111 mmol/L (96-109); Globulin 2.1 g/dL (1.6-3.3); Glucose 164 mg/dL (70-110); NT-Pro-B-Type Natriuretic Pept 3320 pg/mL (0-450); Potassium 5.1 mmol/L (3.5-5.5); Sodium 144 mmol/L (135-145); Total Bilirubin <0.2 mg/dL (0.3-1.2); Total Protein 5.6 g/dL (6.2-8.2)
== END | disposition home or self-care (01) ==
LOC: LABWHC1 10:07
PROVIDERS: ATTEND Physician Assistant
DX: M79.89 Other specified soft tissue disorders (principal); J90 Pleural effusion, not elsewhere classified; R06.00 Dyspnea, unspecified
CPT/HCPCS: 36415; 71046; 80053; 83880; 85025

== ENCOUNTER → 2024-10-04 | Outpatient (CLI) | payer MEDICARE, OTHER ==
[2024-10-04 15:02] LABS: Basophils # (A) 0.05 X 10*3/uL (0.00-0.10); Basophils % (A) 0.6 %; Eosinophils # (A) 0.14 X 10*3/uL (0.04-0.35); Eosinophils % (A) 1.8 %; HCT 28.1 % (37.2-46.3); HGB 8.7 g/dL (12.0-15.0); Lymphocytes # (A) 1.07 X 10*3/uL (0.90-5.00); Lymphocytes % (A) 13.5 %; MCH 30.7 pg (27.0-32.0); MCV 99.3 FL (80.0-97.0); Mean Platelet Volume 10.5 FL (9.5-12.2); Monocytes # (A) 0.54 X 10*3/uL (0.20-1.00); Monocytes % (A) 6.8 %; NRBC Per 100 WBC 0 X 10*3/uL (0.00-0.01); Neutrophils # (A) 6.09 X 10*3/uL (1.80-7.70); Neutrophils % (A) 76.7 %; Platelet Count 283 X 10*3/uL (140-440); RBC 2.83 X 10*6/uL (4.10-5.20); RDW 14.6 % (11.5-14.5); WBC 7.94 X 10*3/uL (4.50-10.00)
[2024-10-04 16:44] LABS: % Iron Saturation 14.84 (12.00-45.00); BUN/Creat Ratio 16.54 Ratio (12.00-20.00); Blood Urea Nitrogen 21.5 mg/dL (9.0-27.0); Calcium 8.5 mg/dL (8.7-10.3); Carbon Dioxide 21.2 mmol/L (21.6-31.8); Chloride 106 mmol/L (96-109); Glucose 173 mg/dL (70-110); Iron 38 UG/DL (50-170); Potassium 4.9 mmol/L (3.5-5.5); Sodium 138 mmol/L (135-145); Total Iron Binding Capacity 256 UG/DL (228-460)
== END | disposition home or self-care (01) ==
LOC: LABWHC1 10:30
PROVIDERS: ATTEND Physician Assistant
DX: M79.89 Other specified soft tissue disorders (principal); D64.9 Anemia, unspecified
CPT/HCPCS: 36415; 80048; 82728; 83540; 83550; 85025

== ENCOUNTER → 2024-10-05 | Outpatient (CLI) | payer MEDICARE, OTHER | END | disposition home or self-care (01) | LOC: LABWHC1 14:10 | PROVIDERS: ATTEND Physician Assistant | DX: D64.9 Anemia, unspecified (principal) | CPT/HCPCS: 82272 ==

== ENCOUNTER → 2024-10-16 | Outpatient (CLI) | payer MEDICARE, OTHER ==
[2024-10-16 15:05] LABS: HCT 29.3 % (37.2-46.3); HGB 8.9 g/dL (12.0-15.0); MCH 29.9 pg (27.0-32.0); MCHC 30.4 g/dL (32.0-37.0); MCV 98.3 FL (80.0-97.0); Mean Platelet Volume 10.4 FL (9.5-12.2); NRBC Per 100 WBC 0 X 10*3/uL (0.00-0.01); Platelet Count 246 X 10*3/uL (140-440); RBC 2.98 X 10*6/uL (4.10-5.20); RDW 14.5 % (11.5-14.5)
[2024-10-16 15:24] LABS: % Iron Saturation 23.08 (12.00-45.00); ALT 12 U/L (8-44); AST 17 U/L (13-35); Albumin 3.6 g/dL (3.8-4.9); Albumin/Globulin Ratio 1.71 Ratio (1.60-3.17); Alkaline Phosphatase 51 U/L (41-126); BUN/Creat Ratio 14.94 Ratio (12.00-20.00); Blood Urea Nitrogen 25.4 mg/dL (9.0-27.0); Calcium 8.8 mg/dL (8.7-10.3); Carbon Dioxide 22.5 mmol/L (21.6-31.8); Chloride 104 mmol/L (96-109); Globulin 2.1 g/dL (1.6-3.3); Glucose 157 mg/dL (70-110); Iron 60 UG/DL (50-170); Phosphorus 4.7 mg/dL (2.4-5.1); Sodium 139 mmol/L (135-145); Total Bilirubin <0.2 mg/dL (0.3-1.2); Total Iron Binding Capacity 260 UG/DL (228-460); Total Protein 5.7 g/dL (6.2-8.2); Uric Acid 5.4 mg/dL (2.9-7.7)
[2024-10-16 18:40] LABS: Urine Creatinine 58.3 mg/dL (28.0-217.0)
[2024-10-16 19:19] LABS: Appearance,Urine Clear (Clear); Bilirubin,Urine Negative (Negative); Blood,Urine Negative (Negative); Color,Urine Yellow (Yellow); Ketones,Urine Negative (Negative); Nitrite,Urine Negative (Negative); Specific Gravity,Urine 1.019 (1.001-1.030); Urobilinogen,Urine 0.2 E.U./DL
[2024-10-16 19:27] LABS: Bacteria,Urine None Seen (None Seen)
== END | disposition home or self-care (01) ==
LOC: LABWHC1 09:50
PROVIDERS: ATTEND Internal Medicine Nephrology
DX: N18.31 Chronic kidney disease, stage 3a (principal); D63.1 Anemia in chronic kidney disease; N39.0 Urinary tract infection, site not specified; R80.9 Proteinuria, unspecified; E55.9 Vitamin D deficiency, unspecified; M10.9 Gout, unspecified; E11.22 Type 2 diabetes mellitus with diabetic chronic kidney disease
CPT/HCPCS: 36415; 80053; 81001; 82043; 82306; 82570; 82728; 83540; 83550; 83735; 83970; 84100; 84550; 85027

== ENCOUNTER → 2024-10-30 | Outpatient (CLI) | payer MEDICARE, OTHER ==
--- NOTE | 2024-10-30 12:41 | CT ---
EXAMINATION TYPE: CT chest wo con DATE OF EXAM: 10/30/2024 COMPARISON: Chest x-ray October 01, 2024 CLINICAL INDICATION: Female, 84 years old with history of J84.89 INTERSTITIAL LUNG DISEASE, dyspnea I LD TECHNIQUE: CT scan of the thorax is performed without IV contrast. CT DLP: 747 mGycm. Automated Exposure Control for Dose Reduction was Utilized. High resolution joseph col. FINDINGS: Suboptimal study with respiratory motion, this limits evaluation for subcentimeter nodules. LUNGS: Mild to moderate underlying emphysematous changes greatest in the upper lobes is present. Mild linear fibrotic changes in the lower lungs bilaterally is seen. There is focal consolidation/atelect asis along the posterior aspect of the lingula. Trace right-sided pleural effusion. No pneumothorax s een bilaterally. HEART: Cardiomegaly is present. Moderate three-vessel coronary artery calcification is seen. MEDIASTINUM: Lack of IV contrast and technique are noted to limit evaluation for mediastinal and serafin cially hilar adenopathy. There are no definitive greater than 1 cm mediastinal lymph nodes. No lala cardial effusion is seen. Prominent right and left pulmonary arteries is suggestive of underlying pul monary artery hypertension. OTHER: Cholecystectomy clips are present. There is partial visualization of exophytic thin-walled cys t laterally from left kidney with local mass effect measuring at least 10.2 cm long axis. This is not ed on recent kidney ultrasound August 30, 2024. IMPRESSION: Moderate underlying emphysematous change greatest in the upper lungs with mild fibrotic c hanges in the bilateral lower lungs. Underlying pulmonary artery hypertension suspected. [facility], , 10/30/2024 12:39 PM
== END | disposition home or self-care (01) ==
LOC: RADCTMAIN 12:11
PROVIDERS: ATTEND Internal Medicine
DX: J84.89 Other specified interstitial pulmonary diseases (principal); J43.9 Emphysema, unspecified; J84.10 Pulmonary fibrosis, unspecified
CPT/HCPCS: 71250

== ENCOUNTER 2024-12-12 07:57 | Day surgery (SDC) | payer MEDICARE, OTHER ==
[2024-12-12] MEDS: IV FLUID CONTINUATION 1,000 ML IV ONE (08:35)
[2024-12-12 08:55] VITALS: TEMP 97.6
[2024-12-12] MEDS: LACTATED RINGERS 1,000 ML IV SCH (08:55)
[2024-12-12 08:56] LABS: Glucose,Whole Blood 118 mg/dL (70-110)
[2024-12-12] MEDS ORDERED: PROPOFOL 10 MG/ML 20 ML VIAL IV ONE (09:03)
[2024-12-12] MEDS ORDERED: LIDOCAINE 1% INJ 10MG/ML (20 ML MDV) ONE (09:03)
[2024-12-12] MEDS ORDERED: LABETALOL 5 MG/ML VIAL MDV ONE (09:03)
--- NOTE | 2024-12-12 09:43 | P.PCN ---
Date of Procedure: 12/12/24 Procedure(s) Performed: Brief history: Patient is a pleasant 84-year-old white female scheduled for an elective upper endoscopy as well as colonoscopy as a part of evaluation of iron deficiency anemia. Procedure performed: Esophagogastroduodenoscopy with biopsy Colonoscopy with snare polypectomy, argon plasma coagulation, Endo Clip placement and tattooing with Emerita ink Preoperative diagnosis: Iron deficiency anemia Anesthesia: MAC Procedure: After informed consent was obtained from the patient was brought into the endoscopy unit and IV sedation was administered by anesthesia under continuous monitoring. Initially upper endoscopy was done. The Olympus GF 160 video endoscope was inserted inserted into the mouth and esophagus intubated without any difficulty and was gradually advanced into the stomach and duodenum and carefully examined. The bulb and second part of the duodenum had mild d uodenitis and biopsies were done from this area. l. The scope was then withdrawn into the stomach adequately insufflated with air and upon careful examination the antrum and body had multiple scattered erosions identified which was biopsied. Mucosa of the cardia and fundus appeared normal. The scope was then withdrawn into the esophagus. The GE junction was located at 40 cm to the incisors. Small hiatal hernia noted. It appeared regular with no erythema erosions or ulcerations. Rest of the esophagus appeared normal. Patient tolerated the procedure well. At this time the patient continued to remain sedation. Initial digital rectal examination was normal. Olympus CF 160 video colonoscope was then inserted into the rectum and gradually advanced to the cecum without any difficulty. Careful examination was performed as the scope was gradually being withdrawn. The prep was excellent. The cecum, had a 5 mm actively oozing arteriovenous malformation that was coagulated using argon plasma with good hemostasis. In the ascending colon there was a 2.5 cm broad-based polyp that was removed by piecemeal snare polypectomy and almost complete polypectomy accomplished. Following this Endo Clip was placed and tattooing was performed with Emerita ink. In the transverse colon there was a 1 cm polyp removed by snare polypectomy. Rest of the ascending colon, transverse colon, descending colon, sigmoid colon and rectum appeared normal. Moderate sigmoid diverticulosis. Retroflexion was performed in the rectum and no lesions were noted. Patient tolerated the procedure well. Impression: 1. Upper endoscopy revealed mild duodenitis, diffuse gastritis with scattered erosions and small hiatal hernia 2. 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 Complete polypectomy accomplished c) 1 cm transverse colon polyp status post cold snare polypectomy d) moderate sigmoid diverticulosis Recommendations: Findings of this examination were discussed with the patient as well as the family. She was advised to follow-up with the biopsy results. Start on omeprazole 20 mg daily and avoid NSAIDs. She will be seen in the office in 2 weeks to discuss her biopsy results. Based on the biopsy results we will consider repeat colonoscopy in 3 to 6 months
[2024-12-12] MEDS: fentaNYL (PF) 50 MCG/ML 2 ML AMP IVP PRN (10:17)
[2024-12-12 10:31] VITALS: RESP 16
[2024-12-12 10:53] VITALS: BP 155/59; PULSE 75
== END 2024-12-12 11:21 | disposition home or self-care (01) ==
LOC: ORWHC2ENDO 07:57
PROVIDERS: ATTEND Internal Medicine Gastroenterology
DX: K29.50 Unspecified chronic gastritis without bleeding (principal); D12.2 Benign neoplasm of ascending colon; D12.3 Benign neoplasm of transverse colon; K29.80 Duodenitis without bleeding; K44.9 Diaphragmatic hernia without obstruction or gangrene; K21.9 Gastro-esophageal reflux disease without esophagitis; K57.30 Diverticulosis of large intestine without perforation or abscess without bleeding; D50.9 Iron deficiency anemia, unspecified; I10 Essential (primary) hypertension; E78.5 Hyperlipidemia, unspecified; N28.9 Disorder of kidney and ureter, unspecified; Z87.891 Personal history of nicotine dependence; Z90.89 Acquired absence of other organs; Z89.231 Acquired absence of right shoulder; Z88.5 Allergy status to narcotic agent; Z88.7 Allergy status to serum and vaccine; Z79.899 Other long term (current) drug therapy
CPT/HCPCS: 88305; 45385; 43239; J2003; J3010; J2704; J1920